=== PATIENT | female | born 1945 | race African-American/Black ===

== ENCOUNTER 2017-09-05 12:43 | Observation (INO) | payer MEDICARE ==
[2017-09-05 13:30] LABS: #Eosinphils 0.1 thou/uL (0.0-0.7); #Monocytes 0.5 thou/uL (0.11-0.59); #Neutrophils 5.8 thou/uL (1.40-6.50); %Basophils 0.1 % (0.0-1.0); %Eosinophils 1.6 % (0.0-10.0); %Monocytes 6.7 % (0.0-10.0); %Neutrophils 78.6 % (42.0-75.0); Hemoglobin 12.2 g/dL (12.0-16.0); Mean Corpuscular HGB CONC 31.9 g/dL (32.0-36.0); Mean Corpuscular Hemoglobin 29.2 pg (27.0-31.0); Mean Corpuscular Volume 91.5 fl (81.0-99.0); Platelet Count 116 thou/uL (130-400); RBC Distribution Width 12.4 % (11.5-14.5); Red Blood Cell (RBC) Count 4.17 mill/uL (4.20-5.40); White Blood Cell (WBC) Count 7.4 thou/uL (4.8-10.8)
[2017-09-05 13:48] LABS: ALT (SGPT) Less than 7 U/L (8-55); AST (SGOT) 12 U/L (5-34); Albumin 3.9 g/dL (3.4-4.8); Alkaline Phosphatase 52 U/L (40-150); Anion Gap 13 mmol/L (10-20); BUN (Urea Nitrogen) 13 mg/dL (9.8-20.1); Bilirubin, Total 0.4 mg/dL (0.2-1.2); CK (CPK) 95 U/L (29-168); Calc. Creatinine Clearance 0 mL/min (70-130); Calcium 9.7 mg/dL (7.8-10.44); Carbon Dioxide 26 mmol/L (23-31); Chloride 106 mmol/L (98-107); Estimated GFR-MDRD 35; Globulin 3.1 g/dL (2.4-3.5); Glucose 89 mg/dL (83-110); Lipase 48 U/L (8-78); Potassium 3.9 mmol/L (3.5-5.1); Sodium 141 mmol/L (136-145)
[2017-09-05 13:59] LABS: CKMB 0.5 ng/mL (0-6.6); Troponin I 0.017 ng/mL (< 0.028)
--- NOTE | 2017-09-05 15:21 | CT ---
CT BRAIN WITHOUT CONTRAST: HISTORY: Bradycardia and syncope. FINDINGS: There are changes of chronic small vessel ischemic disease and old infarction in the right basal gang philip and right occipital lobe. No evidence of acute infarct, hemorrhage, midline shift, or abnormal e xtraaxial fluid collections is seen. The ventricular size is appropriate, and the basilar cisterns a re patent. The bony calvarium is intact. The visualized paranasal sinuses and mastoid air cells are well aerated. IMPRESSION: No CT evidence of acute intracranial process. POS: ENRIQUEH
--- NOTE | 2017-09-05 16:01 | RAD ---
PORTABLE CHEST ONE VIEW: 09/05/17 at 3:03 p.m. HISTORY: Syncope. FINDINGS: The heart size is borderline. The aorta is tortuous. No lobar consolidation, pneumothoraces, tonio pu lmonary edema or pleural effusions are seen. There are degenerative changes in the spine. IMPRESSION: No radiographic evidence of acute cardiopulmonary process. POS: H
--- NOTE | 2017-09-05 16:50 | HP ---
PRIMARY CARE PHYSICIAN: Dr. Nataliia Diallo. REASON FOR ADMISSION: Syncope, sinus bradycardia. HISTORY OF PRESENT ILLNESS: A 72-year-old female who has a history of Parkinson's d isease as well as Alzheimer dementia, who was brought to emergency room by paramedics for syncopal ep isode. This morning, the patient was getting ready for her primary care physician followup visit and the patient was resting and waiting for going. At that time, the patient slumped over and at that t gabino, the patient was less responsive. She became diaphoretic and she had episode of vomiting. Ze edics were called and paramedics found pulse 30 on the scene. She was given atropine 1.5 mg. The pa tient was found with a second degree type 1 AV block as per paramedics. Subsequently, after atropine , her pulse improved to 60s. The patient's vitals were stable other than bradycardia by paramedics. When she came to emergency room, at that time her heart rate was in 72, but subsequently was dropping to 40s. At this point, we are admitting this patient for syncope evaluation and sinus bradycardia e valuation. The patient is not taking any medication that can cause low pulse. The patient has under lying Alzheimer dementia and Parkinson disease and that is why from her history is very limited. The patient's sister and other family member present at bedside, who provided most of the history. The patient never had this type of problem in past. She did not have any chest pain or palpitation. She did not have any dyspnea on exertion, orthopnea, PND or leg swelling. She did not have any fever, c hills, UTI symptoms, constipation, diarrhea, melena or hematochezia. She did not have any focal weak ness. REVIEW OF SYSTEMS: All review of systems tried to reviewed with the patient, but unable to review at this point because of Alzheimer's dementia and not reliable. ALLERGIES: No known drug allergy. CURRENT HOME MEDICATIONS: Zocor 80 mg p.o. at bedtime, carbidopa levodopa 25/100 two tablets 3 times daily, Zoloft 50 mg p.o. daily, Aricept 10 mg p.o. at bedtime, aspirin 81 mg p.o. daily, Combtiffanie rollins twice daily. PAST MEDICAL HISTORY: History of cerebrovascular accident with left-sided weakness, Parkinson's dise ase, Alzheimer dementia, dyslipidemia, hypertension, and glaucoma. PAST SURGICAL HISTORY: Cataract surgery. PAST PSYCHIATRIC HISTORY: Anxiety and depression. SOCIAL HISTORY: The patient lives at home with family. No history of tobacco, alcohol or illicit dr ug abuse. FAMILY HISTORY: No strong family history of premature coronary artery disease, stroke or cancer. EMERGENCY ROOM COURSE: Reviewed. PHYSICAL EXAMINATION: VITAL SIGNS: Currently, blood pressure 129/47, pulse 48, respiratory rate 15, temperature 97.6, satu ration 100% on room air, weight 90.7 kilograms. GENERAL: The patient is currently alert, awake, arousable, follows simple command. No acute distres s. HEAD: Normocephalic, atraumatic. EYES: Pupils round, reactive to light. Extraocular muscle intact. ENT: Oropharynx within normal limit. Moist mucous membranes. No oral lesion, no pharyngeal erythem a, no exudate. NECK: Supple, no JVD, no thyromegaly, no carotid bruit, no jugular venous distention. LUNGS: Clear to auscultation without any rhonchi or rales. CARDIAC: S1, S2 regular, bradycardia. No murmur, no gallop, no rub. ABDOMEN: Soft, bowel sounds present, nontender, nondistended. No organomegaly, no mass, no suprapub ic tenderness. BACK: Unremarkable, no CVA tenderness. EXTREMITIES: Upper extremity: Passive movements of all joints are normal. Lower extremities: No e maday. Good peripheral pulsation. SKIN: No skin rash. HEMATOLOGICAL: No lymphadenopathy. PSYCHIATRIC: Normal affect. NEUROLOGIC: She is moving all 4 limbs. Detailed neurological examination is not possible, but gross ly looking patient does not have any focal neurological deficit. Plantar bilateral flexor. Reflexes symmetrical. SIGNIFICANT LABS: 1. EKG showing sinus bradycardia. 2. CBC: WBC 7.4, hemoglobin 12.2, platelet 116. BMP: Sodium 141, potassium 3.9, chloride 106, car bon dioxide 26, anion gap 13, BUN 13, creatinine 1.46, glucose 89, calcium 9.7. 3. LFT: AST 12, ALT less than 7, alkaline phosphatase 52, albumin 3.9, CK 95, CK-MB 0.5, troponin I 0.017, lipase 48. ASSESSMENT AND PLAN: 1. Syncope/near syncope, most likely related with symptomatic bradycardia. As per paramedics, her p ulse rate was in 30s. She required atropine. Her heart rate is still running in 40s. At this point , we will consult Cardiology for their opinion. This patient may need pacemaker evaluation. We will do serial cardiac enzymes to rule out acute coronary syndrome. This patient may need a loop recorde r. We will obtain echocardiography to assess the other structural abnormality. We will check orthos tatic vitals. We will monitor on telemetry floor. 2. Parkinson's disease. We will continue carbidopa/levodopa 25/100 two tablets 3 times daily as per home dosage. 3. Alzheimer dementia. We will continue Aricept 10 mg p.o. at bedtime. 4. Dyslipidemia. Continue Zocor 80 mg p.o. at bedtime and check lipid profile tomorrow morning. 5. Symptomatic sinus bradycardia. We will check TSH as well and Cardiology will be consulted for pa eric evaluation. 6. Glaucoma. We will continue patient's ophthalmic drops Combigan as per home dosage twice daily. 7. Anxiety and depression. We will continue Zoloft 50 mg p.o. daily. 8. Mild thrombocytopenia. We will monitor CBC. 9. Chronic kidney disease stage 3. We will monitor renal function. 10. Deep venous thrombosis prophylaxis not needed because we are expecting discharge in 24 hours. 11. Gastrointestinal prophylaxis, Pepcid 20 mg p.o. b.i.d. 12. Code status: The patient is FULL CODE. Patient's sister is surrogate decision maker. Disposition plan based on clinical course and Cardiology recommendation. Plan of care discussed with the patient and family member at bedside in the emergency room.
[2017-09-05 17:14] LABS: Troponin I 0.017 ng/mL (< 0.028)
[2017-09-05] MEDS ORDERED: hydrALAZINE 20 MG/ML VIAL SLOW IVP PRN (18:00)
[2017-09-05] MEDS ORDERED: Loperamide HCl 2 MG CAP PO PRN (18:00)
[2017-09-05] MEDS ORDERED: Eucerin (Mineral Oil/Petrolatum,White) 30 gm Jar TOP PRN (18:00)
[2017-09-05] MEDS ORDERED: Milk Of Magnesia 30 ML UDCUP PO PRN (18:00)
[2017-09-05] MEDS ORDERED: Artificial Tears 18 DROP/0.9 ML EA EYE PRN (18:00)
[2017-09-05] MEDS ORDERED: Ondansetron HCl/PF 4 MG/2 ML Vial IVP PRN (18:00)
[2017-09-05] MEDS ORDERED: Ondansetron ODT 4 MG TAB PO PRN (18:00)
[2017-09-05] MEDS ORDERED: Sodium Chloride 0.65% Nasal 44 ML BOT EA NARE PRN (18:00)
[2017-09-05] MEDS ORDERED: Acetaminophen 325 MG TAB PO PRN (18:00)
[2017-09-05] MEDS ORDERED: Loratadine 10 MG TAB PO PRN (18:00)
[2017-09-05] MEDS ORDERED: Zolpidem Tartrate 5 MG TAB PO PRN (18:00)
[2017-09-05] MEDS ORDERED: HYDROcodone/Acetaminophen 5/325 mg Tablet PO PRN (18:00)
[2017-09-05] MEDS ORDERED: Senokot 8.6 MG TAB PO PRN (18:00)
[2017-09-05] MEDS ORDERED: Chloraseptic Spray 180 ml Bottle PO PRN (18:00)
[2017-09-05] MEDS ORDERED: Atropine Sulfate 1 mg/1 ml Vial IVP PRN (18:00)
[2017-09-05] MEDS ORDERED: Diabetic Tussin 200 MG/10 ML UDCUP PO PRN (18:00)
[2017-09-05] MEDS ORDERED: Nitroglycerin 0.4 MG TAB (25 Tab Bottle) SL PRN (18:00)
[2017-09-05] MEDS ORDERED: Mag-Al 1200 mg/1200 mg/30 ML UDCUP PO PRN (18:00)
[2017-09-05 18:11] VITALS: BMI 31.1
[2017-09-05 20:01] LABS: Troponin I 0.021 ng/mL (< 0.028)
[2017-09-05] MEDS: Famotidine 20 MG TAB PO SCH (20:42)
[2017-09-05] MEDS: Carbidopa/Levodopa 25-100 mg Tablet PO SCH (20:42)
[2017-09-05] MEDS: Donepezil HCl 10 MG TAB PO SCH (20:42)
[2017-09-05] MEDS: Simvastatin 40 MG TAB PO SCH (20:43)
--- NOTE | 2017-09-05 21:10 | CON ---
DATE OF CONSULT: HISTORY OF PRESENT ILLNESS: The patient is a 72-year-old woman who has a history of Parkinson's disease who presents for evaluation of near syncope. The patient has no previous cardiac history. She suffers from dementia. She lives with her family. She suddenly became nauseated, lightheaded and nearly lost consciousness. EMS was contacted. She was found to have a heart rate of approximately 30. She received atropine and was sent for further evaluation. The patient denies having any chest discomfort. Apparent her according to her family she has no previous history of syncope. PAST MEDICAL HISTORY: 1. Parkinson disease. 2. Dementia. 3. Hypertension. 4. Glaucoma. PAST SURGICAL HISTORY: Cataract surgery. SOCIAL HISTORY: She lives with her family. Nonsmoker. FAMILY HISTORY: Noncontributory: CURRENT MEDICATIONS: Aricept 10 daily, Zocor 80 daily, carbidopa/levodopa 2 tablets t.i.d., Zoloft 50 daily, aspirin 81. PHYSICAL EXAMINATION: GENERAL: This is an elderly woman in no acute distress. VITAL SIGNS: Blood pressure of 156/82, heart rate is approximately 45. GENERAL: Alert and oriented x1. NECK: Showed no jugular venous distention. LUNGS: Clear to auscultation. HEART: Regular rate and rhythm, normal S1, S2, no murmurs. ABDOMEN: Distended. EXTREMITIES: Showed trace edema. VASCULAR: Radial pulses are 2+. LABORATORY: Sodium 141, potassium 3.9, chloride 106, bicarb 26, BUN 13, creatinine 1.46. Troponin 0.017. White blood count 7.4, hemoglobin 12.2, hematocrit 38.1, platelets 116. EKG revealed sinus bradycardia with second degree with heart block, Mobitz type 1. IMPRESSION: 1. Bradycardia. 2. Syncope. 3. Parkinson's disease. 4. Hypertension. 5. Obesity. This patient presents with a near syncopal episode. She is in Mobitz type 1 second degree AV block. We will ask EP to evaluate whether she should have placement of electronic pacemaker. We will follow this patient with you through her hospitalization. DOLLY
[2017-09-06 05:34] LABS: Anion Gap 14 mmol/L (10-20); BUN (Urea Nitrogen) 13 mg/dL (9.8-20.1); Calc. Creatinine Clearance 53 mL/min (70-130); Calcium 9.3 mg/dL (7.8-10.44); Carbon Dioxide 24 mmol/L (23-31); Cardiac Risk 2.9 (Less than 4.5); Chloride 105 mmol/L (98-107); Cholesterol 147 mg/dl (< 200 Desired); Estimated GFR-MDRD 49; Glucose 73 mg/dL (83-110); HDL Cholesterol 51 mg/dL (>60 Neg Risk); LDL Cholesterol, Calculated 79 mg/dL; Potassium 3.3 mmol/L (3.5-5.1); Sodium 140 mmol/L (136-145); Triglycerides 86 mg/dL (Less than 150)
[2017-09-06 05:48] LABS: #Eosinphils 0.1 thou/uL (0.0-0.7); #Lymphocytes 1.4 thou/uL (1.20-3.40); #Monocytes 0.4 thou/uL (0.11-0.59); #Neutrophils 2.5 thou/uL (1.40-6.50); %Basophils 0.7 % (0.0-1.0); %Eosinophils 3.3 % (0.0-10.0); %Lymphocytes 31.8 % (21.0-51.0); %Monocytes 8.4 % (0.0-10.0); %Neutrophils 55.8 % (42.0-75.0); Hemoglobin 11.3 g/dL (12.0-16.0); Mean Corpuscular HGB CONC 32.9 g/dL (32.0-36.0); Mean Corpuscular Hemoglobin 30.2 pg (27.0-31.0); Mean Corpuscular Volume 91.8 fl (81.0-99.0); Platelet Count 121 thou/uL (130-400); RBC Distribution Width 12.3 % (11.5-14.5); Red Blood Cell (RBC) Count 3.74 mill/uL (4.20-5.40); White Blood Cell (WBC) Count 4.5 thou/uL (4.8-10.8)
[2017-09-06] MEDS ORDERED: Potassium Chloride 20 MEQ TAB PO SCH ×2 (07:00→10:30)
[2017-09-06] MEDS ORDERED: Midazolam HCl 2 mg/2 ml Vial ONE (07:13)
[2017-09-06] MEDS ORDERED: Fentanyl 100 MCG/2 ML VIAL ONE (07:13)
[2017-09-06] MEDS ORDERED: CEFAZOLIN/Water 2 GM/20 ML SYRINGE ONE (07:14)
[2017-09-06] MEDS ORDERED: Lidocaine 1% (PF) 30 ML VIAL ONE ×2 (07:14→08:49)
--- NOTE | 2017-09-06 10:06 | CON ---
DATE OF CONSULTATION: 09/06/2017 ELECTROPHYSIOLOGY CONSULTATION REFERRING PHYSICIAN: Dr. Kaiser as well as Dr. Man. I am seeing Ms. 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 Her problems are: 1. Symptomatic bradycardia with syncope. 2. EKG documentation of heart rate in the 30s. 3. Chronic fatigue. 4. History of Alzheimer's dementia and Parkinsonism. 5. History of hypercholesterolemia. ALLERGIES: None. MEDICATIONS: At home include aspirin, sertraline, carbidopa/levodopa, simvastatin, donepezil, brimon idine. SUBJECTIVE: Ms. Brenner is a poor historian. Most of the history is obtained from the chart as well as from the family. This lady has been having chronic fatigue and tiredness. She has a lot of time spent sleeping during the day. This was attributed to her dementia in the past, but while visiting her primary care physician she was noted to be diaphoretic. She even threw up and then her heart rat e was in the 30s on arrival of EMS. She did become very poorly responsive along with this. Eventual ly, she came to and went back to her usual self. Her heart rate still remained in the 40s to low 50s . Episodes of sinus bradycardia was seen, but also some Mobitz type 1 second degree AV block. Apart from that, there is no major new symptoms. She has the usual chronic memory problems at that t gabino, though she has no stroke-like symptoms or neurological deficits. There is no fever, chills or c ough, no UTI like symptoms. No diarrhea, no further abdominal discomfort. REVIEW OF SYSTEMS: The rest of the twelve point systems otherwise unremarkable. PAST MEDICAL HISTORY: As above. She denies prior history of heart disease or heart attacks. No his tory of LV dysfunction is noted. She does have a history of glaucoma and cataract surgery. SOCIAL HISTORY: Patient lives with her family. Denies smoking, ETOH, or drug use. FAMILY HISTORY: Noncontributory. OBJECTIVE: VITAL SIGNS: Blood pressure is 163/92, heart rate 50, respiration 16, temperature 98.4 degrees Fahre nheit. GENERAL: This is an oriented elderly woman in no apparent distress. NECK: Supple. Jugular veins not distended. CHEST: Coarse without crackles. CARDIAC: Heart sounds are regular to rate and rhythm. No murmur or gallop. ABDOMEN: Benign. Bowel sounds positive. EXTREMITIES: Lower extremities without edema, clubbing or cyanosis. Pulses are adequate. NEUROLOGIC: Patient nonfocal. MUSCULOSKELETAL: No joint deformity. SKIN: Without rash. DATABASE: The EKGs reviewed revealing a baseline sinus bradycardia, rate of 56 beats per minute. Al so, Mobitz type 1 AV block is seen. Subsequent EKGs also reveal heart rates in the 30s transiently w ith sinus bradycardia. LABORATORY DATA: White count is initially 7.4, hemoglobin 12.2, platelet count is 116. Sodium 141, potassium 3.9, BUN is 30, creatinine is 1.46. Chest x-ray also shows no acute processes. ASSESSMENT AND PLAN: Ms. Brenner is a pleasant 72-year-old woman with history of Parkinson's and Alz heimer's and progressive fatigue and tiredness. She is noted to have marked lower heart rates in the 30s associated with a syncopal spell in her primary care physician's office. The episode was relati vely unprovoked, although could have worsened by acute nausea and vomiting. Nevertheless, her heart rate remains in the lower 40s and 50s. It seems that this lady has a significant sinus milan disease associated with chronic fatigue and tir edness and sleepiness. In view of her recent syncope she could benefit from pacemaker prophylaxis, e augustina though she has Alzheimer's she has some residual quality of life. We discussed the wishes of ramsey ng with the family and risks and benefits were clearly detailed. They understand and willing to proce ed. Thank you again for allowing me to participate in the care of this patient.
[2017-09-06] MEDS ORDERED: Iopamidol 370 76% 50 ML VIAL FS ONE (10:15)
--- NOTE | 2017-09-06 10:15 | PDOC.PN ---
- Subjective Encounter Start Date: 09/06/17 Encounter Start Time: 13:00 -: old records requested/rev Patient seen and examined. No new complaints. No overnight events pacemaker placed - Objective Resuscitation Status: Resuscitation Status FULL:Full Resuscitation MAR Reviewed: Yes Vital Signs & Weight: Vital Signs (12 hours) Temp Pulse Resp BP BP Pulse Ox 09/06/17 08:00 98.4 F 50 L 16 163/92 H 96 09/06/17 07:30 98.4 F 50 L 16 09/06/17 03:31 98.7 F 51 L 16 139/73 Weight Weight 193 lb 6.4 oz I&O: 09/05/17 09/06/17 09/07/17 06:59 06:59 06:59 Intake Total 190 Balance 190 Result Diagrams: 09/06/17 05:01 09/06/17 05:01 EKG Reviewed by me: Yes Phys Exam - Physical Examination Constitutional: NAD HEENT: moist MMs, sclera anicteric Neck: no JVD, supple Respiratory: no wheezing, no rales, no rhonchi Cardiovascular: RRR, no significant murmur, no rub pacemaker site is clean Gastrointestinal: soft, non-tender, no distention, positive bowel sounds Musculoskeletal: no edema, pulses present Neurological: non-focal, normal sensation, moves all 4 limbs Psychiatric: normal affect, A&O x 3 Skin: no rash, normal turgor Dx/Plan (1) Hypokalemia Code(s): E87.6 - HYPOKALEMIA Status: Acute (2) Pancytopenia Code(s): D61.818 - OTHER PANCYTOPENIA Status: Acute (3) Symptomatic bradycardia Code(s): R00.1 - BRADYCARDIA, UNSPECIFIED Status: Acute Comment: mobitz type -1 AVB (4) Syncope Code(s): R55 - SYNCOPE AND COLLAPSE Status: Acute (5) Thrombocytopenia Code(s): D69.6 - THROMBOCYTOPENIA, UNSPECIFIED Status: Acute (6) Alzheimer's dementia Code(s): G30.9 - ALZHEIMER'S DISEASE, UNSPECIFIED; F02.80 - DEMENTIA IN OTH DISEASES CLASSD ELSWHR W/O BEHAVRL DISTURB Status: Chronic (7) Anxiety and depression Code(s): F41.9 - ANXIETY DISORDER, UNSPECIFIED; F32.9 - MAJOR DEPRESSIVE DISORDER, SINGLE EPISODE, UNSPECIFIED Status: Chronic (8) CKD (chronic kidney disease) stage 3, GFR 30-59 ml/min Code(s): N18.3 - CHRONIC KIDNEY DISEASE, STAGE 3 (MODERATE) Status: Chronic (9) Dyslipidemia Code(s): E78.5 - HYPERLIPIDEMIA, UNSPECIFIED Status: Chronic (10) H/O: CVA (cerebrovascular accident) Code(s): Z86.73 - PRSNL HX OF TIA (TIA), AND CEREB INFRC W/O RESID DEFICITS Status: Chronic (11) Parkinson disease Code(s): G20 - PARKINSON'S DISEASE Status: Chronic - Plan cont current plan of care * today EP study and possible pacemaker placement * will replace potassium chloride * will add folic acid and vitamin B12 * continue her home medication * if pacemaker placed, will observe overnight and consider discharge tomorrow * medication reviewed as below * symptomatic treatment. Review of Systems - Review of Systems Other: unable to review with pt as pt has advanced dementia - Medications/Allergies Allergies/Adverse Reactions: Allergies Allergy/AdvReac Type Severity Reaction Status Date / Time No Known Allergies Allergy Unverified 09/05/17 18:01 Medications: Current Medications Acetaminophen (Tylenol) 650 mg PO Q4H PRN PRN Reason: Headache/Fever or Pain Hydrocodone Bitart/Acetaminophen ([place] 5/325) 1 tab PO Q4H PRN PRN Reason: Moderate Pain (4-6) Al Hydroxide/Mg Hydroxide (Maalox) 30 ml PO Q6H PRN PRN Reason: Heartburn or Indigestion Artificial Tears (Tears Naturale) 0 drop EA EYE PRN PRN PRN Reason: Dry Eyes Aspirin (Aspirin Chewable) 81 mg PO DAILY [facility] Atropine Sulfate (Atropine) 0.5 mg IVP ONE PRN PRN Reason: bradycardia HR <35 Stop: 09/07/17 18:01 Carbidopa/Levodopa (Sinemet 25-100) 2 tab PO TID MELVIN Last Admin: 09/05/17 20:42 Dose: 2 tab Cyanocobalamin (Vitamin B-12) 1,000 mcg PO DAILY MELVIN Donepezil HCl (Aricept) 10 mg PO HS MELVIN Last Admin: 09/05/17 20:42 Dose: 10 mg Famotidine (Pepcid) 20 mg PO 2100 MELVIN Last Admin: 09/05/17 20:42 Dose: 20 mg Folic Acid (Folvite) 1 mg PO DAILY [facility] Guaifenesin (Robitussin Sf) 200 mg PO Q4H PRN PRN Reason: Cough Hydralazine HCl (Apresoline) 10 mg SLOW IVP Q4H PRN PRN Reason: Systolic BP > 180 Iron/Minerals/Multivitamins (Theragran M) 1 tab PO DAILY [facility] Loperamide HCl (Imodium) 2 mg PO PRN PRN PRN Reason: Diarrhea/Loose Stools Loratadine (Claritin) 10 mg PO DAILYPRN PRN PRN Reason: Sinus Symptoms Magnesium Hydroxide (Milk Of Magnesium) 30 ml PO DAILYPRN PRN PRN Reason: Constipation Mineral Oil/White Petrolatum (Eucerin Cream) 0 gm TOP BIDPRN PRN PRN Reason: Dry Skin Nitroglycerin (Nitrostat) 0.4 mg SL Q5MIN PRN PRN Reason: Chest Pain Ondansetron HCl (Zofran Odt) 4 mg PO Q6H PRN PRN Reason: Nausea/Vomiting Ondansetron HCl (Zofran) 4 mg IVP Q6H PRN PRN Reason: Nausea/Vomiting Phenol (Chloraseptic Alna 180 Ml Bot) 0 ml PO PRN PRN PRN Reason: Sore Throat Senna (Senokot) 2 tab PO HSPRN PRN PRN Reason: Constipation Sertraline HCl (Zoloft) 50 mg PO DAILY [facility] Simvastatin (Zocor) 80 mg PO HS [facility] Last Admin: 09/05/17 20:43 Dose: 80 mg Sodium Chloride (Stokes Nasal Alna 0.65%) 0 ml EA NARE QIDPRN PRN PRN Reason: Nasal Congestion Sodium Chloride (Flush - Normal Saline) 10 ml IVF Q12HR MELVIN Sodium Chloride (Flush - Normal Saline) 10 ml IVF PRN PRN PRN Reason: Saline Flush Zolpidem Tartrate (Ambien) 5 mg PO HSPRN PRN PRN Reason: Insomnia
[2017-09-06] MEDS ORDERED: HYDROcodone/Acetaminophen 5/325 mg Tablet PO PRN ×2 (10:36)
[2017-09-06] MEDS: Cyanocobalamin (Vitamin B-12) 1,000 MCG TAB PO SCH (13:21)
[2017-09-06] MEDS: Cephalexin 250 MG CAP PO SCH ×2 (13:21→17:46)
[2017-09-06] MEDS: Folic Acid 1 MG TAB PO SCH (13:21)
[2017-09-06] MEDS: Multivitamin W/ Minerals 1 TAB PO SCH (13:22)
[2017-09-06] MEDS: Carbidopa/Levodopa 25-100 mg Tablet PO SCH ×3 (13:22→20:53)
--- NOTE | 2017-09-06 13:35 | RAD ---
PORTABLE CHEST: Date: 09-06-17 Provided Clinical History: Pacemaker placement. FINDINGS: Comparison 09-05-17. Cardiac and mediastinal silhouette is unchanged in appearance. Left subclavian cardiac pacing device is now present with the tips overlying expected locations of RA and RV. No pleural fluid or pneumotho rax apparent. The lungs remain clear. IMPRESSION: Interval left subclavian cardiac pacemaking device placement without evidence for complication. POS: OFF
[2017-09-06 14:12] LABS: Bilirubin Negative (Negative); Blood, Urine Negative (Negative); Clarity CLEAR (Clear); Glucose, Urine (Dipstick) Negative (Negative); Leukocyte Large (Negative); Nitrite Negative (Negative); Protein, Urine (Dipstick) Negative (Neg-Trace); Specific Gravity, Urine 1.019 (1.002-1.036); Urobilinogen 0.2 mg/dL (0.2-1.0)
[2017-09-06 14:14] LABS: Bacteria/HPF None Seen HPF (None Seen); Hyaline Casts/LPF 0-3 HYALINE CAST LPF (0-3 Hyaline); Pathc Cast-AUWi Flag 0.14 (0-2.49); RBC/HPF 0-3 HPF (0-3); Squamous Epithelial 0-3 HPF (0-3); WBC/HPF 21-50 HPF (0-3)
[2017-09-06] MEDS: Simvastatin 40 MG TAB PO SCH (20:53)
[2017-09-06] MEDS: Famotidine 20 MG TAB PO SCH (20:54)
[2017-09-06] MEDS: Donepezil HCl 10 MG TAB PO SCH (20:54)
[2017-09-07] MEDS: Cephalexin 250 MG CAP PO SCH ×3 (01:19→12:37)
--- NOTE | 2017-09-07 08:02 | RAD ---
UPRIGHT PORTABLE CHEST 1 VIEW: HISTORY: A 72-year-old female with a history of pacemaker placement, followup syncope and 2nd degree type I he art block. Left ICD is in place. Atherosclerosis of the aorta. Heart size is within normal limits. The lungs are clear. IMPRESSION: No acute intrathoracic disease. Left implantable cardioverter defibrillator. Atherosclerosis of the aorta. Unchanged from prior study. POS: OFF
--- NOTE | 2017-09-07 08:51 | DIS ---
DATE OF ADMISSION: 09/05/2017 DATE OF DISCHARGE: 09/07/2017 DISCHARGE DIAGNOSES: 1. Symptomatic bradycardia. 2. Sinus bradycardia. 3. Status post pacemaker placement. 4. Alzheimer's type dementia. 5. Parkinson's disease. 6. Hypokalemia acute - resolved. 7. Pancytopenia, chronic. 8. Syncope and collapse. 9. Chronic thrombocytopenia. 10. Anxiety and depression. 11. Hyperlipidemia. 12. Chronic kidney disease stage 3. 13. Cerebrovascular disease status post cerebrovascular accident in the past. CONSULTATIONS: 1. Cardiology, Dr. Aashish Man 2. Electrophysiology, Dr. Nirmal Zamora PROCEDURES: Permanent pacemaker placement on 09/06/2017, AV sequential dual chamber. HISTORY AND PHYSICAL: Ms. Brenner is a 72-year-old female with history of Parkinson's and Alzheimer' s type dementia who presented to the emergency department for evaluation on 09/05/2017 after having a n episode of syncope. She was found to be bradycardic in the 30s to 40s. Given atropine and had a s econd degree type 1 AV block. Workup in the emergency department was otherwise negative. We were subsequently called for admission . HOSPITAL COURSE: The patient seen and examined by Dr. Saunders and placed in observation. Cardiology consulted who recommended EP consultation. EP was consulted and was seen by Dr. Zamora on the morning 09/06. He agreed that she could benefit from a pacemaker placement, patient was already n.p.o., and so afternoon of 09/06, a pacemaker was placed. Overnight, she did well, this morning she was refusing medications, but remains stable. Her followup chest x-ray showed no evidence of pneumothorax. She was discharged home with regular home medicatio ns and Keflex. The patient was seen and examined on day of discharge. Discharge plan and disposition were discussed with the patient, I am not sure how much she actually g ot. DISCHARGE MEDICATIONS: 1. New medication, cephalexin 500 mg p.o. q.6h., prescription 40 capsules sent. 2. Vitamin B12 1000 mcg daily. 3. Pepcid 20 mg p.o. daily. 4. Folic acid 1 mg daily. 5. Multivitamin daily 6. Namenda 10 mg p.o. at bedtime. 7. Sinemet 25/100 two tabs p.o. t.i.d. to continue. 8. Aspirin 81 mg daily. 9. Combigan 2% /0.5% 1 drop in each eye q.12h. 10. Zoloft 50 mg p.o. daily. 11. Simvastatin 80 mg p.o. at bedtime. FOLLOWUP APPOINTMENTS: 1. Dr. Imani William within a week. 2. Dr. Man per his clinic schedule. 3. Dr. Nirmal Zamora in 10-14 days. DISCHARGE CONDITION: Stable. DISPOSITION: She will be discharged home via private vehicle. DISCHARGE ACTIVITY: Per cardiopulmonary limits. DISCHARGE DIET: Heart healthy recommended.
[2017-09-07] MEDS: Folic Acid 1 MG TAB PO SCH (09:20)
[2017-09-07] MEDS: Carbidopa/Levodopa 25-100 mg Tablet PO SCH (09:20)
[2017-09-07] MEDS: Cyanocobalamin (Vitamin B-12) 1,000 MCG TAB PO SCH (09:20)
[2017-09-07] MEDS: Multivitamin W/ Minerals 1 TAB PO SCH (09:21)
[2017-09-07 11:19] VITALS: BP 166/93; TEMP 97.1
--- NOTE | 2017-09-07 13:36 | PRG ---
DATE OF SERVICE: 09/07/2017 ELECTROPHYSIOLOGY FOLLOWUP NOTE SUBJECTIVE: Ms. Brenner seems to be doing fair. She has no new symptoms after her pacemaker implant ation yesterday. OBJECTIVE DATA: VITAL SIGNS: Blood pressure is 114/78, heart rate 59, respiration 16, temperature 98.3 degrees Fahre nheit. GENERAL: This is a demented elderly female in no apparent distress. NECK: Supple. Jugular veins are not distended. CHEST: Coarse without crackles. CARDIOVASCULAR: Heart sounds are regular to rate and rhythm. Left precordial pacing insertion site is without reaction. ABDOMEN: Benign. Bowel sounds positive. EXTREMITIES: Lower extremities no edema, clubbing or cyanosis. DATABASE: Chest x-ray this morning shows no pneumothorax, adequate device placement. The telemetry strips reveals atrial paced rhythm. ASSESSMENT AND PLAN: Ms. Brenner is a pleasant 72-year-old wholly demented woman who had a syncopal spell with marked bradycardia, so she underwent a dual-chamber pacemaker placement yesterday, so far no complication detected. She was advised to go home on antibiotics for 1 week and wound check in ab out 2 weeks requested. From an EP standpoint, she is stable for discharge.
== END 2017-09-07 13:48 | disposition home or self-care (01) ==
LOC: ERS 12:43 → 2SE 15:09
PROVIDERS: ADMIT Internal Medicine; ATTEND Internal Medicine
PROC: 0JH606Z Insertion of Pacemaker, Dual Chamber into Chest Subcutaneous Tissue and Fascia, Open Approach (ICD-10-PCS; principal; 2017-09-05)
PROC: 02H63JZ Insertion of Pacemaker Lead into Right Atrium, Percutaneous Approach (ICD-10-PCS; 2017-09-05)
PROC: 02HK3JZ Insertion of Pacemaker Lead into Right Ventricle, Percutaneous Approach (ICD-10-PCS; 2017-09-05)
DX: R00.1 Bradycardia, unspecified (principal); I44.0 Atrioventricular block, first degree; I12.9 Hypertensive chronic kidney disease with stage 1 through stage 4 chronic kidney disease, or unspecified chronic kidney disease; N18.3 Chronic kidney disease, stage 3 (moderate); G30.9 Alzheimer's disease, unspecified; F02.80 Dementia in other diseases classified elsewhere, unspecified severity, without behavioral disturbance, psychotic disturbance, mood disturbance, and anxiety; G20 Parkinson's disease; E87.6 Hypokalemia; D61.818 Other pancytopenia; D69.6 Thrombocytopenia, unspecified; F41.8 Other specified anxiety disorders; E78.5 Hyperlipidemia, unspecified; Z79.82 Long term (current) use of aspirin; Z79.899 Other long term (current) drug therapy; Z98.890 Other specified postprocedural states; Z86.73 Personal history of transient ischemic attack (TIA), and cerebral infarction without residual deficits
CPT/HCPCS: 33208; 70450; 71045 ×3; 80048; 80053; 80061; 81001; 82550; 82553; 83690; 84443; 84484 ×2; 85025 ×2; 93005; 93306; 94760; 99285; C1785; C1898 ×2; G0378; 36415; A4216; J2001; J2250; J3010; J3490

== ENCOUNTER 2017-09-16 03:36 | Inpatient (IN) | payer MEDICARE ==
[2017-09-16 04:24] LABS: #Eosinphils 0.2 thou/uL (0.0-0.7); #Monocytes 0.4 thou/uL (0.11-0.59); #Neutrophils 3.9 thou/uL (1.40-6.50); %Basophils 0.9 % (0.0-1.0); %Eosinophils 3.5 % (0.0-10.0); %Lymphocytes 17.3 % (21.0-51.0); %Monocytes 7.7 % (0.0-10.0); %Neutrophils 70.6 % (42.0-75.0); Hemoglobin 12.3 g/dL (12.0-16.0); Mean Corpuscular HGB CONC 31.7 g/dL (32.0-36.0); Mean Corpuscular Hemoglobin 29.1 pg (27.0-31.0); Mean Corpuscular Volume 91.6 fl (81.0-99.0); Mean Platelet Volume 9.9 fL (7.4-10.4); Platelet Count 148 thou/uL (130-400); RBC Distribution Width 12.7 % (11.5-14.5); Red Blood Cell (RBC) Count 4.23 mill/uL (4.20-5.40); White Blood Cell (WBC) Count 5.5 thou/uL (4.8-10.8)
[2017-09-16 04:42] LABS: ALT (SGPT) Less than 7 U/L (8-55); AST (SGOT) 19 U/L (5-34); Alkaline Phosphatase 50 U/L (40-150); Anion Gap 14 mmol/L (10-20); BUN (Urea Nitrogen) 21 mg/dL (9.8-20.1); Bilirubin, Total 0.3 mg/dL (0.2-1.2); CK (CPK) 52 U/L (29-168); Calc. Creatinine Clearance 0 mL/min (70-130); Calcium 9.8 mg/dL (7.8-10.44); Carbon Dioxide 26 mmol/L (23-31); Chloride 104 mmol/L (98-107); Estimated GFR-MDRD 37; Globulin 3.2 g/dL (2.4-3.5); Glucose 92 mg/dL (83-110); Lipase 74 U/L (8-78); Potassium 3.9 mmol/L (3.5-5.1); Protein, Total 7.2 g/dL (6.0-8.3); Sodium 140 mmol/L (136-145)
[2017-09-16 04:47] LABS: CKMB 0.7 ng/mL (0-6.6); Troponin I 0.026 ng/mL (< 0.028)
[2017-09-16 04:54] LABS: Bilirubin Negative (Negative); Blood, Urine Negative (Negative); Clarity CLEAR (Clear); Glucose, Urine (Dipstick) Negative (Negative); Leukocyte Negative (Negative); Nitrite Negative (Negative); Protein, Urine (Dipstick) Negative (Neg-Trace); Urobilinogen 0.2 mg/dL (0.2-1.0)
[2017-09-16] MEDS ORDERED: Sodium Chloride 0.9% 1,000 ML IV SCH (06:00)
[2017-09-16] MEDS ORDERED: Ondansetron ODT 4 MG TAB PO PRN (07:03)
[2017-09-16] MEDS ORDERED: Ondansetron HCl/PF 4 MG/2 ML Vial IVP PRN ×2 (07:03→11:04)
[2017-09-16 07:45] LABS: Troponin I 0.043 ng/mL (< 0.028)
--- NOTE | 2017-09-16 08:10 | RAD ---
PORTABLE CHEST: Date: 09/16/17 HISTORY: Chest pain. FINDINGS: Lungs are clear. No evidence of infiltrate. Heart size within normal range. Dual lead pacemaker devic e again noted. No evidence of edema or vascular congestion. IMPRESSION: No acute findings. POS: [facility]
[2017-09-16] MEDS ORDERED: Guaifenesin DM 100-10/5 ML UDCUP PO PRN (11:04)
[2017-09-16] MEDS ORDERED: Acetaminophen 325 MG TAB PO PRN (11:04)
[2017-09-16] MEDS ORDERED: Metoprolol Tartrate 50 MG TAB PO SCH (11:22)
[2017-09-16 11:27] LABS: Troponin I 0.042 ng/mL (< 0.028)
--- NOTE | 2017-09-16 14:29 | CON ---
DATE OF CONSULTATION: 09/16/2017 PRIMARY SPORTS MEDICINE COORDINATOR: Dr. Estrada Man. REASON FOR CONSULTATION: Ventricular tachycardia. HISTORY OF PRESENT ILLNESS: Mrs. Brenner is a very pleasant 72-year-old -[place] female, who comes to the hospital for complaints of high blood pressure and tachycardia. She was brought in by EMS and was evaluated. She had a pacemaker placed about a week or two ago for symptomatic bradycardi a and she presented as a syncopal spell at that time. She did not have syncope this time. She comes in, pacemaker was interrogated and it showed a 1 minute and 38 seconds worth of ventricular high rat es is consistent with ventricular tachycardia, heart rate at 180, so Cardiology is being consulted fo r this. Mrs. Brenner denies any chest pain, tightness or pressure, no shortness of breath. Her bloo d pressure is still somewhat elevated. PAST MEDICAL HISTORY: 1. Parkinson's disease. 2. Dementia. 3. Hypertension. 4. Glaucoma. 5. Symptomatic bradycardia status post pacemaker placement. PAST SURGICAL HISTORY: 1. Cataract surgery. 2. Pacemaker placed recently. SOCIAL HISTORY: No alcohol, tobacco, or drugs. FAMILY HISTORY: Noncontributory. OUTPATIENT MEDICATIONS: Include: 1. Simvastatin 80 mg at bedtime. 2. Zoloft. 3. Multivitamin. 4. Folic acid. 5. Pepcid AC. 6. Aricept. 7. Vitamin B12. 8. Cephalexin. 9. Carbidopa/levodopa. 10. Brimonidine. 11. Aspirin 81 a day. ALLERGIES: No known drug allergies. REVIEW OF SYSTEMS: A 12-point review of systems was done and is all negative unless stated in the hi story of present illness. PHYSICAL EXAMINATION: VITAL SIGNS: Temperature 98.1, pulse 60, respiration rate 18, satting 96% on room air, and blood pre ssure 157/80. GENERAL: Awake, alert, oriented to person and place, difficulty with time, in no distress. HEENT: Normocephalic, atraumatic. NECK: Supple. LUNGS: Clear. CARDIOVASCULAR: S1 and S2. No S3 or S4, no murmurs. ABDOMEN: Soft, positive bowel sounds. EXTREMITIES: No edema. SKIN: Warm and dry. LABORATORY WORK: Reviewed. CBC is unremarkable. Chemistries are unremarkable. BUN 21, creatinine 1.64. Her baseline creatinine is actually little bit lower 1.21 discharged, but is between 1.3 and 1 .4. Troponin was 0.02 and 0.04, then 0.04. BNP was 61. GFR is 37. UA is unremarkable. EKG was reviewed. Telemetry was reviewed. A pacer interrogation was reviewed. She had one ventricular high event that lasted 1 minute and 46 s econds at 2:00 a.m. on 09/16/2017. This showed a max ventricular rate of 183 beats per minute. ASSESSMENT AND PLAN: 1. Ventricular tachycardia, sustained. 2. Recent pacemaker placement secondary to symptomatic bradycardia. 3. Parkinson disease. 4. Hypertension. PLAN: 1. In the setting of sustained ventricular tachycardia, we need to rule out ischemia as the cause. We spoke about possible left heart catheterization, risks and benefits. The risks include, but not l imited to stroke, [place], , bleeding and need for blood transfusion, limb loss, organ loss. reaction to contrast media. She agrees to proceed. We will plan on doing this on Monday. Dr. Man will perform procedure on Monday. 2. We will add beta catracho to control her blood pressure and hopefully deisy a little bit her VT. 3. Continue all other home medications. 4. Thank you for letting us participate in the care of your patient. We will follow.
[2017-09-16] MEDS: Carbidopa/Levodopa CR 50-200 mg Tablet PO SCH ×2 (17:25→21:48)
[2017-09-16 18:40] VITALS: BMI 31.1
[2017-09-16] MEDS ORDERED: Prevnar 13-Val Conj/PF 0.5 ML SYRINGE IM ONE (19:00)
--- NOTE | 2017-09-16 21:33 | HP ---
REASON FOR ADMISSION: Ventricular tachycardia. HISTORY OF PRESENT ILLNESS: Please note patient does not recall what happened and has underlying dementia. Further information was obtained by talking to patient's sister, Ms. Renaldo Gu, is also the power of contracts attorney for patient. Per . Renaldo, patient had gone to restroom around 2 in the morning. She usually takes help to ambulate, but had gone on her own. She was profusely sweating and was leaning onto the bathroom door. The sister finally recognized that she was not in bed and went to check on her and immediately called 911. They managed to bring her to the living room. She had not fallen per family. Patient was lethargic and a bit dazed. On arrival in the ER, the patient has had pacemaker interrogation done which revealed ventricular tachycardia with rates going up to 183 beats per minute around the same time around 2:00 a.m. early this morning and lasted for nearly a minute and 46 seconds. Currently, she has no complaints of chest pain, palpitation, PND or orthopnea. No complaints of cough or expectoration. Has not had any new medications started. PAST MEDICAL AND SURGICAL HISTORY: History of dementia, history of Parkinson's disease, dyslipidemia, hypertension, cataract surgery, recent pacemaker placement for bradycardia. CURRENT MEDICATIONS: The patient was discharged on 09/05/2017 on aspirin 81 mg p.o. daily, Combigan eyedrops, carbidopa/levodopa extended release 25/100 mg 2 tablets three times daily, vitamin B12 of 1000 mcg p.o. daily, donepezil 10 mg p.o. at bedtime, Pepcid 20 mg daily, folic acid 1 mg daily, multivitamin 1 tab once daily, sertraline 50 mg daily, simvastatin 80 mg p.o. at bedtime. ALLERGIES: No known drug allergies. PERSONAL HISTORY: Does not abuse alcohol or drugs. No history of smoking. She normally ambulates with minimal assistance. She lives with her sister, has home health. FAMILY HISTORY: Mother at the age of 76 years. She has had history of hypertension. Father at the age of 80 years. He has had history of coronary artery disease. REVIEW OF SYSTEMS: The following complete review of systems was negative, unless otherwise mentioned in the HPI or below: Constitutional: Weight loss or gain, ability to conduct usual activities. Skin: Rash, itching. Eyes: Double vision, pain. ENT/Mouth: Nose bleeding, neck stiffness, pain, tenderness. Cardiovascular: Palpitations, dyspnea on exertion, orthopnea. Respiratory: Shortness of breath, wheezing, cough, hemoptysis, fever or night sweats. Gastrointestinal: Poor appetite, abdominal pain, heartburn, nausea, vomiting, constipation, or diarrhea. Genitourinary: Urgency, frequency, dysuria, nocturia. Musculoskeletal: Pain, swelling. Neurologic/Psychiatric: Anxiety, depression. Allergy/Immunologic: Skin rash, bleeding tendency. PHYSICAL EXAMINATION: GENERAL: The patient is a 72-year-old female who is currently not in any acute distress. VITAL SIGNS: Blood pressure 158/96, pulse 64 per minute, respiratory rate 16 per minute, temperature 99.3 degrees on arrival, saturating 98% on room air. NECK: Supple, no elevated JVD. HEENT: Eyes, extraocular muscles intact. Pupils are reacting to light. Oral cavity, mucous membranes are moist. No exudates or congestion. CARDIOVASCULAR: S1, S2 heard. Regular rhythm. RESPIRATORY: Air entry 1+ bilaterally. No rales or rhonchi. ABDOMEN: Soft, bowel sounds heard. No tenderness, rigidity or guarding. EXTREMITIES: No peripheral edema or calf tenderness. VASCULAR SYSTEM: Peripheral pulses 1+ bilateral, no ischemic ulcerations or gangrene. CENTRAL NERVOUS SYSTEM: No gross focal deficits seen. Patient is lethargic, but responds well to verbal questions. She moves all 4 extremities. No obvious hallucinations or delusions. LABORATORY AND X-RAY FINDINGS: Chest x-ray done shows no acute findings. EKG done shows paced rhythm, mostly atrial paced at 62 beats per minute. White count of 5, H&H 12 and 38, platelet count 148 with 70% neutrophils, MCV is 91. Electrolytes are stable. BUN 21, creatinine 1.6. Liver enzymes are within normal limits. Troponin I is indeterminate peaking up to 0.04, CK-MB 0.7. BNP is 61. Lipase is 74, albumin is 4.0. CLINICAL IMPRESSION AND PLAN: Patient will be admitted to telemetry for an episode of ventricular tachycardia lasting for a minute and 46 seconds around 2: 00 a.m. She has had recent placement of pacemaker for bradycardia. We will consult Dr. Mart who is [employer] attendant for Cardiology. In fact, the patient had a recent followup on with Dr. Zamora and was told her pacemaker is working well. Patient does not have an AICD. Please note patient had a dual chamber pacemaker placed, but no AICD on 09/06/2017. Her echo on the revealed an ejection fraction of 45-50%. In view of her ventricular tachycardia, we will place her on Lopressor 50 mg twice daily and closely monitor her on telemetry. We will continue her on aspirin, Lipitor, Combigan eyedrops, Sinemet, vitamin B12, Aricept, folic acid, sertraline, and timolol eyedrops as before. Patient' s creatinine is around 1.64. This is slightly higher than her baseline, likely at 1.46 from 09/05/2017 and will be closely monitored. Code status was discussed with the patient and her sister and she would be a FULL CODE now. MTDD
[2017-09-16] MEDS: Docusate 100 MG CAP PO SCH (21:48)
[2017-09-16] MEDS: Famotidine 20 MG TAB PO SCH (21:48)
[2017-09-16] MEDS: Atorvastatin Calcium 40 MG TAB PO SCH (21:48)
[2017-09-16] MEDS: Metoprolol Tartrate 50 MG TAB PO SCH (21:48)
[2017-09-16] MEDS: Donepezil HCl 10 MG TAB PO SCH (21:48)
[2017-09-16] MEDS: Timolol 0.5% Ophth Soln 5 ml Bottle EA EYE SCH (21:51)
[2017-09-16] MEDS: Brimonidine Tartrate 0.2% Ophth Soln 5 ml Bottle EA EYE SCH (21:53)
[2017-09-17 05:27] LABS: #Basophils 0.1 thou/uL (0.0-0.2); #Eosinphils 0.2 thou/uL (0.0-0.7); #Lymphocytes 1.3 thou/uL (1.20-3.40); #Monocytes 0.5 thou/uL (0.11-0.59); #Neutrophils 3.1 thou/uL (1.40-6.50); %Basophils 1.5 % (0.0-1.0); %Eosinophils 3.9 % (0.0-10.0); %Lymphocytes 25.6 % (21.0-51.0); %Monocytes 9.2 % (0.0-10.0); %Neutrophils 59.8 % (42.0-75.0); Hemoglobin 12.1 g/dL (12.0-16.0); Mean Corpuscular HGB CONC 32.5 g/dL (32.0-36.0); Mean Corpuscular Hemoglobin 29.8 pg (27.0-31.0); Mean Corpuscular Volume 91.5 fl (81.0-99.0); Mean Platelet Volume 10.1 fL (7.4-10.4); Platelet Count 145 thou/uL (130-400); RBC Distribution Width 12.7 % (11.5-14.5); Red Blood Cell (RBC) Count 4.06 mill/uL (4.20-5.40); White Blood Cell (WBC) Count 5.2 thou/uL (4.8-10.8)
[2017-09-17 05:40] LABS: Anion Gap 11 mmol/L (10-20); BUN (Urea Nitrogen) 18 mg/dL (9.8-20.1); Calc. Creatinine Clearance 52 mL/min (70-130); Calcium 9.8 mg/dL (7.8-10.44); Carbon Dioxide 25 mmol/L (23-31); Chloride 104 mmol/L (98-107); Estimated GFR-MDRD 48; Glucose 70 mg/dL (83-110); Potassium 3.8 mmol/L (3.5-5.1); Sodium 136 mmol/L (136-145)
[2017-09-17] MEDS: Brimonidine Tartrate 0.2% Ophth Soln 5 ml Bottle EA EYE SCH ×2 (08:05→21:47)
[2017-09-17] MEDS: Timolol 0.5% Ophth Soln 5 ml Bottle EA EYE SCH ×2 (08:05→21:47)
[2017-09-17] MEDS: Docusate 100 MG CAP PO SCH ×2 (08:06→21:46)
[2017-09-17] MEDS: Carbidopa/Levodopa CR 50-200 mg Tablet PO SCH ×3 (08:06→21:46)
[2017-09-17] MEDS: Metoprolol Tartrate 50 MG TAB PO SCH ×2 (08:06→21:48)
[2017-09-17] MEDS: Multivitamin W/ Minerals 1 TAB PO SCH (08:06)
[2017-09-17] MEDS: Folic Acid 1 MG TAB PO SCH (08:06)
[2017-09-17] MEDS: Cyanocobalamin (Vitamin B-12) 1,000 MCG TAB PO SCH (08:07)
[2017-09-17] MEDS ORDERED: Enoxaparin Sodium 40 MG/0.4 ML SYRINGE SC SCH (09:00)
--- NOTE | 2017-09-17 11:36 | PDOC.PN ---
- Subjective Encounter Start Date: 09/17/17 Encounter Start Time: 07:20 Pt seen for followup re: ventricular tachycardia. Sleepy but arousable, denies chest pain, shortness of breath, fevers or chills. - Objective Resuscitation Status: Resuscitation Status FULL:Full Resuscitation MAR Reviewed: Yes Vital Signs & Weight: Vital Signs (12 hours) Temp Pulse Resp BP Pulse Ox 09/17/17 08:11 98.1 F 63 14 150/74 H 96 09/17/17 08:07 98.1 F 63 14 96 09/17/17 08:05 64 09/17/17 05:21 97.6 F 64 16 149/71 H 98 09/17/17 00:44 98.2 F 63 16 141/75 H 99 I&O: 09/16/17 09/17/17 09/18/17 06:59 06:59 06:59 Intake Total 300 Balance 300 Result Diagrams: 09/17/17 04:47 09/17/17 04:47 Additional Labs: Accuchecks 09/17/17 09/17/17 10:57 08:13 POC Glucose 75 62 L EKG Reviewed by me: Yes (Tele: electronic A-paced rhythm) Phys Exam - Physical Examination Obese HEENT: moist MMs, sclera anicteric, oral pharynx no lesions, 2+ tonsils Neck: no nodes, no JVD, supple, full ROM Respiratory: no wheezing, no rales, no rhonchi, clear to auscultation bilateral Cardiovascular: no rub S1, S2, regular Gastrointestinal: soft, non-tender, no distention, positive bowel sounds Neurological: moves all 4 limbs Psychiatric: normal affect Dx/Plan (1) Ventricular tachycardia Code(s): I47.2 - VENTRICULAR TACHYCARDIA Status: Acute Comment: No recurrence, continue to monitor on telemetry. Continue metoprolol. (2) Alzheimer's dementia Code(s): G30.9 - ALZHEIMER'S DISEASE, UNSPECIFIED; F02.80 - DEMENTIA IN OTH DISEASES CLASSD ELSWHR W/O BEHAVRL DISTURB Status: Chronic Comment: Stable (3) CKD (chronic kidney disease) stage 3, GFR 30-59 ml/min Code(s): N18.3 - CHRONIC KIDNEY DISEASE, STAGE 3 (MODERATE) Status: Chronic Comment: Stable (4) Dyslipidemia Code(s): E78.5 - HYPERLIPIDEMIA, UNSPECIFIED Status: Chronic Comment: Stable (5) H/O: CVA (cerebrovascular accident) Code(s): Z86.73 - PRSNL HX OF TIA (TIA), AND CEREB INFRC W/O RESID DEFICITS Status: Chronic Comment: Stable (6) Parkinson disease Code(s): G20 - PARKINSON'S DISEASE Status: Chronic Comment: Stable - Plan * . For cath tomorrow. Pt has PPM, no AICD. Review of Systems - Review of Systems Constitutional: negative: fever, chills, sweats, weakness, malaise Respiratory: negative: Cough, Shortness of Breath, SOB with Excertion, Pleuritic Pain, Wheezing Cardiovascular: negative: chest pain, palpitations, orthopnea, paroxysmal nocturnal dyspnea, edema, light headedness Gastrointestinal: negative: Nausea, Vomiting, Abdominal Pain, Diarrhea, Constipation, Melena, Hematochezia Genitourinary: negative: Dysuria, Frequency, Incontinence, Hematuria, Retention - Medications/Allergies Allergies/Adverse Reactions: Allergies Allergy/AdvReac Type Severity Reaction Status Date / Time No Known Allergies Allergy Unverified 09/05/17 18:01 Medications: Current Medications Acetaminophen (Tylenol) 650 mg PO Q4H PRN PRN Reason: Headache/Fever or Pain Aspirin (Aspirin Chewable) 81 mg PO DAILY [facility] Last Admin: 09/17/17 08:06 Dose: 81 mg Atorvastatin Calcium (Lipitor) 40 mg PO HS [facility] Last Admin: 09/16/17 21:48 Dose: 40 mg Brimonidine Tartrate (Alphagan 0.2% Ophth Soln) 1 drop EA EYE BID [facility] Last Admin: 09/17/17 08:05 Dose: 1 drop Carbidopa/Levodopa (Sinemet Cr 50/200) 1 tab PO TID [facility] Last Admin: 09/17/17 08:06 Dose: 1 tab Cyanocobalamin (Vitamin B-12) 1,000 mcg PO DAILY [facility] Last Admin: 09/17/17 08:07 Dose: 1,000 mcg Docusate Sodium (Colace) 100 mg PO BID [facility] Last Admin: 09/17/17 08:06 Dose: 100 mg Donepezil HCl (Aricept) 10 mg PO HS [facility] Last Admin: 09/16/17 21:48 Dose: 10 mg Enoxaparin Sodium (Lovenox) 40 mg SC 0900 [facility] Last Admin: 09/17/17 08:05 Dose: 40 mg Famotidine (Pepcid) 20 mg PO 2100 [facility] Last Admin: 09/16/17 21:48 Dose: 20 mg Folic Acid (Folvite) 1 mg PO DAILY [facility] Last Admin: 09/17/17 08:06 Dose: 1 mg Guaifenesin/Dextromethorphan (Robitussin Dm) 15 ml PO Q4H PRN PRN Reason: Cough Iron/Minerals/Multivitamins (Theragran M) 1 tab PO DAILY [facility] Last Admin: 09/17/17 08:06 Dose: 1 tab Metoprolol Tartrate (Lopressor) 50 mg PO BID [facility] Last Admin: 09/17/17 08:06 Dose: 50 mg Ondansetron HCl (Zofran) 4 mg IVP Q6H PRN PRN Reason: Nausea/Vomiting Sertraline HCl (Zoloft) 50 mg PO DAILY [facility] Last Admin: 09/17/17 08:06 Dose: 50 mg Timolol Maleate (Timoptic 0.5% Oph Soln) 1 drop EA EYE BID [facility] Last Admin: 09/17/17 08:05 Dose: 1 drop
--- NOTE | 2017-09-17 13:25 | PDOC.CTH ---
Cardiology Progress Note - Subjective She is more confused today. No chest pain. no recurrence of CT. - Objective Vital Signs Temp Pulse Resp BP Pulse Ox 09/17/17 11:46 98.3 F 66 16 131/75 94 L 09/17/17 08:11 98.1 F 63 14 150/74 H 96 09/17/17 08:07 98.1 F 63 14 96 09/17/17 08:05 64 09/17/17 05:21 97.6 F 64 16 149/71 H 98 09/16/17 09/17/17 09/18/17 06:59 06:59 06:59 Intake Total 300 Balance 300 - Physical Examination General/Neuro: NAD Neck: no JVD present Lungs: CTA, unlabored respirations Heart: RRR Abdomen: NT/ND Extremities: + edema B (trace) - Telemetry Telemetry Rhythm: NSR - Labs Result Diagrams: 09/17/17 04:47 09/17/17 04:47 Troponin/CKMB CK-MB (CK-2) 0.7 ng/mL (0-6.6) 09/16/17 04:14 Troponin I 0.042 ng/mL (< 0.028) H 09/16/17 10:07 - Assessment/Plan 1. Sustained VT 2. Presence of a PPM 3. HTN 4. Alzheimers dementia, waxes and wanes. PLAN: - I spoke with her sister about possibly doing a LHC. She stated she wants her to have a heart catheterization. We spoke about possible complications includign stroke, [place], , bleeding and need for blood transfusions, limb loss , organ loss, renal failure from contrast. She understand and verbalizes undrstanding of this and she agrees to proceed. - Dr. Man to do LHC tomorrow.
[2017-09-17] MEDS ORDERED: Communication Order-Pharmacy FS SCH (13:45)
[2017-09-17] MEDS: Donepezil HCl 10 MG TAB PO SCH (21:46)
[2017-09-17] MEDS: Famotidine 20 MG TAB PO SCH (21:46)
[2017-09-17] MEDS: Atorvastatin Calcium 40 MG TAB PO SCH (21:46)
[2017-09-18] MEDS: Sodium Chloride 0.9% 1,000 ML IV SCH ×2 (02:41→13:45)
[2017-09-18] MEDS: Timolol 0.5% Ophth Soln 5 ml Bottle EA EYE SCH ×2 (08:46→20:58)
[2017-09-18] MEDS: Multivitamin W/ Minerals 1 TAB PO SCH (08:48)
[2017-09-18] MEDS: Cyanocobalamin (Vitamin B-12) 1,000 MCG TAB PO SCH (08:48)
[2017-09-18] MEDS: Docusate 100 MG CAP PO SCH ×2 (08:48→20:54)
[2017-09-18] MEDS: Brimonidine Tartrate 0.2% Ophth Soln 5 ml Bottle EA EYE SCH ×2 (08:48→20:58)
[2017-09-18] MEDS: Metoprolol Tartrate 50 MG TAB PO SCH ×2 (08:48→20:53)
[2017-09-18] MEDS: Carbidopa/Levodopa CR 50-200 mg Tablet PO SCH ×3 (08:49→20:53)
[2017-09-18] MEDS: Folic Acid 1 MG TAB PO SCH (08:49)
--- NOTE | 2017-09-18 12:10 | PDOC.PN ---
- Subjective Encounter Start Date: 09/18/17 Encounter Start Time: 07:40 Pt seen for followup re: ventricular tachycardia. Sleepy but arousable, denies chest pain, shortness of breath, fevers or chills. - Objective Resuscitation Status: Resuscitation Status FULL:Full Resuscitation Vital Signs & Weight: Vital Signs (12 hours) Temp Pulse Resp BP BP BP Pulse Ox 09/18/17 11:44 97.7 F 60 12 129/86 100 09/18/17 08:46 63 139/80 09/18/17 08:00 98.3 F 63 12 139/80 98 09/18/17 03:31 97.7 F 60 16 137/81 98 09/18/17 01:10 98.2 F 61 16 147/74 H 100 I&O: 09/17/17 09/18/17 09/19/17 06:59 06:59 06:59 Intake Total 300 Balance 300 Result Diagrams: 09/17/17 04:47 09/17/17 04:47 EKG Reviewed by me: Yes (Tele: NSR) Phys Exam - Physical Examination Obese HEENT: moist MMs Neck: supple Respiratory: clear to auscultation bilateral Cardiovascular: RRR Gastrointestinal: soft Neurological: moves all 4 limbs Psychiatric: normal affect Dx/Plan (1) Ventricular tachycardia Code(s): I47.2 - VENTRICULAR TACHYCARDIA Status: Acute Comment: Continue metoprolol. Continue to monitor on telemetry. Pt to have repeat interrogation of pacemaker. (2) Alzheimer's dementia Code(s): G30.9 - ALZHEIMER'S DISEASE, UNSPECIFIED; F02.80 - DEMENTIA IN OTH DISEASES CLASSD ELSWHR W/O BEHAVRL DISTURB Status: Chronic Comment: Stable, continue home medications (3) CKD (chronic kidney disease) stage 3, GFR 30-59 ml/min Code(s): N18.3 - CHRONIC KIDNEY DISEASE, STAGE 3 (MODERATE) Status: Chronic Comment: Stable (4) Dyslipidemia Code(s): E78.5 - HYPERLIPIDEMIA, UNSPECIFIED Status: Chronic Comment: Stable (5) H/O: CVA (cerebrovascular accident) Code(s): Z86.73 - PRSNL HX OF TIA (TIA), AND CEREB INFRC W/O RESID DEFICITS Status: Chronic Comment: Stable (6) Parkinson disease Code(s): G20 - PARKINSON'S DISEASE Status: Chronic Comment: Stable - Plan * . Review of Systems - Review of Systems Respiratory: negative: Cough, Shortness of Breath, SOB with Excertion, Pleuritic Pain, Wheezing Cardiovascular: negative: chest pain, palpitations, orthopnea, paroxysmal nocturnal dyspnea, edema, light headedness - Medications/Allergies Allergies/Adverse Reactions: Allergies Allergy/AdvReac Type Severity Reaction Status Date / Time No Known Allergies Allergy Unverified 09/05/17 18:01 Medications: Current Medications Acetaminophen (Tylenol) 650 mg PO Q4H PRN PRN Reason: Headache/Fever or Pain Aspirin (Aspirin Chewable) 81 mg PO DAILY [facility] Last Admin: 09/18/17 08:48 Dose: 81 mg Atorvastatin Calcium (Lipitor) 40 mg PO HS [facility] Last Admin: 09/17/17 21:46 Dose: 40 mg Brimonidine Tartrate (Alphagan 0.2% Ophth Soln) 1 drop EA EYE BID [facility] Last Admin: 09/18/17 08:48 Dose: 1 drop Carbidopa/Levodopa (Sinemet Cr 50/200) 1 tab PO TID [facility] Last Admin: 09/18/17 08:49 Dose: 1 tab Cyanocobalamin (Vitamin B-12) 1,000 mcg PO DAILY [facility] Last Admin: 09/18/17 08:48 Dose: 1,000 mcg Docusate Sodium (Colace) 100 mg PO BID [facility] Last Admin: 09/18/17 08:48 Dose: 100 mg Donepezil HCl (Aricept) 10 mg PO HS [facility] Last Admin: 09/17/17 21:46 Dose: 10 mg Famotidine (Pepcid) 20 mg PO 2100 [facility] Last Admin: 09/17/17 21:46 Dose: 20 mg Folic Acid (Folvite) 1 mg PO DAILY [facility] Last Admin: 09/18/17 08:49 Dose: 1 mg Guaifenesin/Dextromethorphan (Robitussin Dm) 15 ml PO Q4H PRN PRN Reason: Cough Sodium Chloride (Normal Saline 0.9%) 1,000 mls @ 75 mls/hr IV .[id number] [facility] Last Admin: 09/18/17 02:41 Dose: 1,000 mls Iron/Minerals/Multivitamins (Theragran M) 1 tab PO DAILY [facility] Last Admin: 09/18/17 08:48 Dose: 1 tab Metoprolol Tartrate (Lopressor) 50 mg PO BID [facility] Last Admin: 09/18/17 08:48 Dose: 50 mg Miscellaneous Information (Communication Order-Pharmacy) 0 each FS ASDIR [facility] Ondansetron HCl (Zofran) 4 mg IVP Q6H PRN PRN Reason: Nausea/Vomiting Sertraline HCl (Zoloft) 50 mg PO DAILY [facility] Last Admin: 09/18/17 08:49 Dose: 50 mg Sodium Chloride (Flush - Normal Saline) 10 ml IVF Q12HR [facility] Last Admin: 09/17/17 21:47 Dose: 10 ml Sodium Chloride (Flush - Normal Saline) 10 ml IVF PRN PRN PRN Reason: Saline Flush Timolol Maleate (Timoptic 0.5% [facility]) 1 drop EA EYE BID [facility] Last Admin: 09/18/17 08:46 Dose: 1 drop
--- NOTE | 2017-09-18 14:01 | CON ---
DATE OF CONSULTATION: 09/18/2017 ELECTROPHYSIOLOGY CONSULTATION REPORT REFERRING PHYSICIAN: Estrada Man M.D. SUBJECTIVE: Ms. Brenner has history of dementia and she is a poor historian. History was obtained f rom the chart. This lady was noted to get dizzy and diaphoretic about 2:00 in the morning. She deve loped profuse sweating and was leaning onto the bathroom door. They called 911. Eventually, she was transferred to the hospital. The pacemaker was interrogated in the hospital, she was found to have rapid heartbeat, possible ventricular tachycardia was diagnosed. She was admitted for further observ ation. Ever since, her heart rates are stable. Currently, there are no signs of angina, CHF. No dizziness, loss of consciousness, no stroke-like sy mptoms, no neurological deficits either. REVIEW OF SYSTEMS: The rest of 12-point system also unremarkable. Again, she has a chronic dense de mentia. PAST MEDICAL HISTORY: As above. She had history of syncopal spell and marked bradycardia for which reason, she underwent a dual-chamber pacer implantation on 09/06/2017. Subsequently, she was dischar [facility] without issues. A 2D echo from 09/07/2017 was revealing LVEF 45%-50%, mild MR and TR. She also has history of parkinsonism, she is on carbidopa/levodopa. She has chronic fatigue prior to this, sh e has history of hypercholesterolemia. ALLERGIES: None. MEDICATIONS: At home include aspirin, sertraline, carbidopa/levodopa, simvastatin, and Brimonidine. SOCIAL HISTORY: Patient lives with family. Denies smoking history or drug use. FAMILY HISTORY: Noncontributory. OBJECTIVE: VITAL SIGNS: Blood pressure is 129/86, heart rate 60, respirations 12, temperature is 97.7 degrees F ahrenheit. GENERAL: She is alert and oriented woman in no apparent distress. NECK: Supple. Jugular veins not distended. CHEST: Coarse without crackles. CARDIOVASCULAR: Heart sounds are regular to rate and rhythm. No murmur or gallop. ABDOMEN: Benign. Bowel sounds positive. EXTREMITIES: Lower extremities without edema, clubbing or cyanosis. Pulses are adequate. NEUROLOGIC: Patient nonfocal. MUSCULOSKELETAL: Without joint swelling or deformities. SKIN: Without rash. Left precordial pacing insertion site is without reaction. DATABASE: The EKGs reviewed revealing atrial paced rhythm and a first degree AV block, narrow QRS co nduction. Telemetry strips reveals sinus rhythm, occasional PACs, rare PVCs are seen. No ventricula r arrhythmias are noted. On the other hand, the high pacing remote interrogation reveals a [employer]onic Adapta dual chamber pacemaker with battery longevity in the beginning of life about 10 years. Lead parameters are adequate, impedance 500 ohms and 752 ohms respectively. Sensing 2.8 and over 60 bertrand volts. Current programming is DDR 61 30 beats per minute. A single episode corresponding to the diz zy spell less than 1 minute and 46 seconds are noted concerns ventricular tachycardia. LABORATORY DATA: White count 5.2, hemoglobin 12.1, platelet count is 145. Sodium 136, potassium 3.8 , BUN 18, creatinine 1.3. Initial 1.64 to around her baseline. Troponin I 0.042, less than 0.0428 a nd 0.043. Chest x-ray from admission shows no acute findings. ASSESSMENT AND PLAN: Ms. Brenner is a pleasant 72-year-old woman with prior history of syncope, yohannes ed bradycardia which prompted us to implant a dual chamber pacemaker last visit. She healed up well from the pacing implant, but developed a recurrent near syncopal spell and that event correlated with rapid ventricular rates at 2:00 on the day of admission yesterday. The event electrograms were revi ewed revealing only far-field electrograms collected, but the counters seems to indicate ventricular rate of 183 beats per minute, atrial rate 113 beats per minute. This surely would indicate a ventric ular arrhythmia providing adequate atrial sensing occurred. For now, we will re-interrogate the device. She might benefit from antiarrhythmic drug suppression. Due to advanced dementia, we would not recommend ICD implantation at this point. We will follow with you. Further cardiac workup as per Dr. Man.
[2017-09-18] MEDS: Amiodarone 200 MG TAB PO SCH ×2 (14:57→20:53)
[2017-09-18] MEDS: Famotidine 20 MG TAB PO SCH (20:53)
[2017-09-18] MEDS: Donepezil HCl 10 MG TAB PO SCH (20:53)
[2017-09-18] MEDS: Atorvastatin Calcium 40 MG TAB PO SCH (20:53)
[2017-09-19] MEDS: Sodium Chloride 0.9% 1,000 ML IV SCH (04:08)
[2017-09-19] MEDS: Metoprolol Tartrate 50 MG TAB PO SCH ×2 (08:09→21:10)
[2017-09-19] MEDS: Docusate 100 MG CAP PO SCH ×2 (08:09→21:10)
[2017-09-19] MEDS: Amiodarone 200 MG TAB PO SCH ×3 (08:09→21:11)
[2017-09-19] MEDS: Multivitamin W/ Minerals 1 TAB PO SCH (08:09)
[2017-09-19] MEDS: Carbidopa/Levodopa CR 50-200 mg Tablet PO SCH ×3 (08:10→21:10)
[2017-09-19] MEDS: Cyanocobalamin (Vitamin B-12) 1,000 MCG TAB PO SCH (08:10)
[2017-09-19] MEDS: Timolol 0.5% Ophth Soln 5 ml Bottle EA EYE SCH ×2 (08:10→21:11)
[2017-09-19] MEDS: Folic Acid 1 MG TAB PO SCH (08:10)
[2017-09-19] MEDS: Brimonidine Tartrate 0.2% Ophth Soln 5 ml Bottle EA EYE SCH ×2 (08:11→21:11)
--- NOTE | 2017-09-19 11:50 | PDOC.PN ---
- Subjective Encounter Start Date: 09/19/17 Encounter Start Time: 07:00 Pt seen for followup re: ventricular tachycardia. Denies chest pain, shortness of breath, fever or chills. - Objective Resuscitation Status: Resuscitation Status FULL:Full Resuscitation MAR Reviewed: Yes Vital Signs & Weight: Vital Signs (12 hours) Temp Pulse Resp BP BP Pulse Ox 09/19/17 11:39 98.6 F 60 18 130/84 96 09/19/17 08:10 62 121/81 09/19/17 08:00 97.6 F 62 18 09/19/17 07:59 97.6 F 62 18 121/81 97 09/19/17 04:19 97.5 F L 60 16 169/92 H 95 09/19/17 00:04 97.8 F 60 12 143/90 H 97 Weight Weight 187 lb 4.8 oz I&O: 09/18/17 09/19/17 09/20/17 06:59 06:59 06:59 Intake Total 1187 Balance 1187 Result Diagrams: 09/17/17 04:47 09/17/17 04:47 EKG Reviewed by me: Yes (Tele: NSR) Phys Exam - Physical Examination Obese HEENT: moist MMs Neck: supple Respiratory: clear to auscultation bilateral Cardiovascular: RRR Gastrointestinal: soft Neurological: moves all 4 limbs Psychiatric: normal affect Dx/Plan (1) Ventricular tachycardia Code(s): I47.2 - VENTRICULAR TACHYCARDIA Status: Acute Comment: Continue metoprolol. Continue to monitor on telemetry. Pt to have repeat interrogation of pacemaker. (2) Alzheimer's dementia Code(s): G30.9 - ALZHEIMER'S DISEASE, UNSPECIFIED; F02.80 - DEMENTIA IN OTH DISEASES CLASSD ELSWHR W/O BEHAVRL DISTURB Status: Chronic Comment: Stable, continue home medications (3) CKD (chronic kidney disease) stage 3, GFR 30-59 ml/min Code(s): N18.3 - CHRONIC KIDNEY DISEASE, STAGE 3 (MODERATE) Status: Chronic Comment: Stable (4) Dyslipidemia Code(s): E78.5 - HYPERLIPIDEMIA, UNSPECIFIED Status: Chronic Comment: Stable (5) H/O: CVA (cerebrovascular accident) Code(s): Z86.73 - PRSNL HX OF TIA (TIA), AND CEREB INFRC W/O RESID DEFICITS Status: Chronic Comment: Stable (6) Parkinson disease Code(s): G20 - PARKINSON'S DISEASE Status: Chronic Comment: Stable - Plan * . Review of Systems - Review of Systems Respiratory: negative: Cough, Shortness of Breath, SOB with Excertion, Pleuritic Pain, Wheezing Cardiovascular: negative: chest pain, palpitations, orthopnea, paroxysmal nocturnal dyspnea, edema, light headedness - Medications/Allergies Allergies/Adverse Reactions: Allergies Allergy/AdvReac Type Severity Reaction Status Date / Time No Known Allergies Allergy Unverified 09/05/17 18:01 Medications: Current Medications Acetaminophen (Tylenol) 650 mg PO Q4H PRN PRN Reason: Headache/Fever or Pain Amiodarone HCl (Cordarone) 200 mg PO TID [facility] Last Admin: 09/19/17 08:09 Dose: 200 mg Aspirin (Aspirin Chewable) 81 mg PO DAILY [facility] Last Admin: 09/19/17 10:55 Dose: Not Given Atorvastatin Calcium (Lipitor) 40 mg PO [facility] Last Admin: 09/18/17 20:53 Dose: 40 mg Brimonidine Tartrate (Alphagan 0.2% Oph Sol) 1 drop EA EYE BID [facility] Last Admin: 09/19/17 08:11 Dose: 1 drop Carbidopa/Levodopa (Sinemet Cr 50/200) 1 tab PO TID [facility] Last Admin: 09/19/17 08:10 Dose: 1 tab Cyanocobalamin (Vitamin B-12) 1,000 mcg PO DAILY [facility] Last Admin: 09/19/17 08:10 Dose: 1,000 mcg Docusate Sodium (Colace) 100 mg PO BID [facility] Last Admin: 09/19/17 08:09 Dose: 100 mg Donepezil HCl (Aricept) 10 mg PO HS [facility] Last Admin: 09/18/17 20:53 Dose: 10 mg Famotidine (Pepcid) 20 mg PO 2100 [facility] Last Admin: 09/18/17 20:53 Dose: 20 mg Folic Acid (Folvite) 1 mg PO DAILY [facility] Last Admin: 09/19/17 08:10 Dose: 1 mg Guaifenesin/Dextromethorphan (Robitussin Dm) 15 ml PO Q4H PRN PRN Reason: Cough Sodium Chloride (Normal Saline 0.9%) 1,000 mls @ 75 mls/hr IV .[id number] [facility] Last Admin: 09/19/17 04:08 Dose: 1,000 mls Iron/Minerals/Multivitamins (Theragran M) 1 tab PO DAILY [facility] Last Admin: 09/19/17 08:09 Dose: 1 tab Metoprolol Tartrate (Lopressor) 50 mg PO BID [facility] Last Admin: 09/19/17 08:09 Dose: 50 mg Miscellaneous Information (Communication Order-Pharmacy) 0 each FS ASDIR [facility] Ondansetron HCl (Zofran) 4 mg IVP Q6H PRN PRN Reason: Nausea/Vomiting Sertraline HCl (Zoloft) 50 mg PO DAILY [facility] Last Admin: 09/19/17 08:09 Dose: 50 mg Sodium Chloride (Flush - Normal Saline) 10 ml IVF Q12HR [facility] Last Admin: 09/19/17 08:11 Dose: Not Given Sodium Chloride (Flush - Normal Saline) 10 ml IVF PRN PRN PRN Reason: Saline Flush Timolol Maleate (Timoptic 0.5% [facility]) 1 drop EA EYE BID [facility] Last Admin: 09/19/17 08:10 Dose: 1 drop
--- NOTE | 2017-09-19 13:55 | PDOC.CTH ---
<Renetta Fuller - Last Filed: 09/19/17 13:53> Cardiology Progress Note - Subjective EP progress note: Patient seen and evaluated. no family bedside. baseline dementia. No new cardiac concerns or complaints. No family bedside. - Objective Vital Signs Temp Pulse Resp BP BP Pulse Ox 09/19/17 11:39 98.6 F 60 18 130/84 96 09/19/17 08:10 62 121/81 09/19/17 08:00 97.6 F 62 18 09/19/17 07:59 97.6 F 62 18 121/81 97 09/19/17 04:19 97.5 F L 60 16 169/92 H 95 Weight 187 lb 4.8 oz 09/18/17 09/19/17 09/20/17 06:59 06:59 06:59 Intake Total 1187 Balance 1187 - Physical Examination General/Neuro: NAD Neck: carotid US brisk, no JVD present Lungs: CTA, unlabored respirations Heart: RRR Abdomen: NT/ND, soft - Telemetry Telemetry Rhythm: AP VS NSR - Labs Result Diagrams: 09/17/17 04:47 09/17/17 04:47 Troponin/CKMB CK-MB (CK-2) 0.7 ng/mL (0-6.6) 09/16/17 04:14 Troponin I 0.042 ng/mL (< 0.028) H 09/16/17 10:07 - Assessment/Plan 1. Near syncopal episode, cardiogenic 2. History of SSS s/p dual chamber PPM 3. Dual chamber Medtronic Adapta PPM- Lead parameters are stable. Sensing P>2.8 and R>16. AAIR<=>DDDR 60-130. One episode of high ventricular rate 1m46s in duration. Review of EGM make it difficult to determine if episode was SVT vs VT. Recommendation: Non invasive EP study to see if patient is inducible for VT. If SVT seen, would proceed to full EP study and radiofrequency ablation. If VT, then medical management. ICD implant is not recommended due to advanced dementia. All of this is pending consent by [facility] (sister- Ms. Riccardo Macario). Risks , benefits, and alternatives were discussed at length over the phone with Ms. Macario this afternoon. She is considering the information and will then decide. If agreeable, may proceed this afternoon, otherwise likely . <Nirmal Zamora - Last Filed: 09/19/17 16:05> Cardiology Progress Note - Objective Vital Signs Temp Pulse Resp BP BP Pulse Ox 09/19/17 15:33 98.6 F 61 16 143/87 H 97 09/19/17 11:39 98.6 F 60 18 130/84 96 09/19/17 08:10 62 121/81 09/19/17 08:00 97.6 F 62 18 09/19/17 07:59 97.6 F 62 18 121/81 97 09/19/17 04:19 97.5 F L 60 16 169/92 H 95 Weight 187 lb 4.8 oz 09/18/17 09/19/17 09/20/17 06:59 06:59 06:59 Intake Total 1187 Balance 1187 - Labs Result Diagrams: 09/17/17 04:47 09/17/17 04:47 Troponin/CKMB CK-MB (CK-2) 0.7 ng/mL (0-6.6) 09/16/17 04:14 Troponin I 0.042 ng/mL (< 0.028) H 09/16/17 10:07 Attending Addendum - Attending Addendum Date/Time: 09/19/17 1606 I personally evaluated the patient and discussed the management with Ms Fuller. I agree with the History, Examination, Assessment and Plan documented above with any addition or exceptions noted below.
--- NOTE | 2017-09-19 14:35 | EKG ---
Test Reason : Blood Pressure : / mmHG Vent. Rate : 062 BPM Atrial Rate : 062 BPM P-R Int : 000 ms QRS Dur : 102 ms QT Int : 430 ms P-R-T Axes : 000 -14 -05 degrees QTc Int : 436 ms Electronic atrial pacemaker First degree AV block When compared with ECG of 16-SEP-2017 03:45, (Unconfirmed) No significant change was found Confirmed by DR. Madi KEMP ([id number]) on 09/19/2017 2:35:40 PM Referred By: DARIEN Confirmed By:DR. Madi KEMP
[2017-09-19] MEDS: Atorvastatin Calcium 40 MG TAB PO SCH (21:10)
[2017-09-19] MEDS: Donepezil HCl 10 MG TAB PO SCH (21:10)
[2017-09-19] MEDS: Famotidine 20 MG TAB PO SCH (21:11)
[2017-09-20] MEDS: Sodium Chloride 0.9% 1,000 ML IV SCH ×2 (05:03→09:40)
[2017-09-20] MEDS: Brimonidine Tartrate 0.2% Ophth Soln 5 ml Bottle EA EYE SCH ×2 (09:35→20:14)
[2017-09-20] MEDS: Timolol 0.5% Ophth Soln 5 ml Bottle EA EYE SCH ×2 (09:36→20:14)
[2017-09-20] MEDS: Cyanocobalamin (Vitamin B-12) 1,000 MCG TAB PO SCH (09:39)
[2017-09-20] MEDS: Folic Acid 1 MG TAB PO SCH (09:39)
[2017-09-20] MEDS: Docusate 100 MG CAP PO SCH ×2 (09:39→20:15)
[2017-09-20] MEDS: Amiodarone 200 MG TAB PO SCH ×3 (09:39→20:15)
[2017-09-20] MEDS: Multivitamin W/ Minerals 1 TAB PO SCH (09:39)
[2017-09-20] MEDS: Carbidopa/Levodopa CR 50-200 mg Tablet PO SCH ×3 (09:39→20:13)
--- NOTE | 2017-09-20 11:20 | PDOC.PN ---
- Subjective Encounter Start Date: 09/20/17 Encounter Start Time: 07:20 Pt seen for followup re: ventricular tachycardia. Pt not answering questions, unable to complete ROS. - Objective Resuscitation Status: Resuscitation Status FULL:Full Resuscitation MAR Reviewed: Yes Vital Signs & Weight: Vital Signs (12 hours) Temp Pulse Resp BP BP Pulse Ox 09/20/17 09:36 60 138/99 H 09/20/17 07:36 97.3 F L 60 16 138/99 H 95 09/20/17 03:20 98.2 F 61 12 173/93 H 96 Weight Weight 183 lb I&O: 09/19/17 09/20/17 09/21/17 06:59 06:59 06:59 Intake Total 1187 2270 Balance 1187 2270 Result Diagrams: 09/17/17 04:47 09/17/17 04:47 EKG Reviewed by me: Yes (Tele: sinus bradycardia) Phys Exam - Physical Examination Constitutional: NAD HEENT: moist MMs Neck: supple Respiratory: clear to auscultation bilateral Cardiovascular: RRR Gastrointestinal: soft Neurological: moves all 4 limbs Deviation from normal: Unable to assess Dx/Plan (1) Ventricular tachycardia Code(s): I47.2 - VENTRICULAR TACHYCARDIA Status: Acute Comment: Continue metoprolol. Continue to monitor on telemetry. Pt to have noninvasive EP study. (2) Alzheimer's dementia Code(s): G30.9 - ALZHEIMER'S DISEASE, UNSPECIFIED; F02.80 - DEMENTIA IN OTH DISEASES CLASSD ELSWHR W/O BEHAVRL DISTURB Status: Chronic Comment: Stable, on home medications (3) CKD (chronic kidney disease) stage 3, GFR 30-59 ml/min Code(s): N18.3 - CHRONIC KIDNEY DISEASE, STAGE 3 (MODERATE) Status: Chronic Comment: Stable (4) Dyslipidemia Code(s): E78.5 - HYPERLIPIDEMIA, UNSPECIFIED Status: Chronic Comment: Stable (5) H/O: CVA (cerebrovascular accident) Code(s): Z86.73 - PRSNL HX OF TIA (TIA), AND CEREB INFRC W/O RESID DEFICITS Status: Chronic Comment: Stable (6) Parkinson disease Code(s): G20 - PARKINSON'S DISEASE Status: Chronic Comment: Stable - Plan * . Review of Systems - Medications/Allergies Allergies/Adverse Reactions: Allergies Allergy/AdvReac Type Severity Reaction Status Date / Time No Known Allergies Allergy Unverified 09/05/17 18:01 Medications: Current Medications Acetaminophen (Tylenol) 650 mg PO Q4H PRN PRN Reason: Headache/Fever or Pain Amiodarone HCl (Cordarone) 200 mg PO TID [facility] Last Admin: 09/20/17 09:39 Dose: Not Given Aspirin (Aspirin Chewable) 81 mg PO DAILY [facility] Last Admin: 09/20/17 09:39 Dose: 81 mg Atorvastatin Calcium (Lipitor) 40 mg PO HS [facility] Last Admin: 09/19/17 21:10 Dose: 40 mg Brimonidine Tartrate (Alphagan 0.2% Oph Soln) 1 drop EA EYE BID [facility] Last Admin: 09/20/17 09:35 Dose: 1 drop Carbidopa/Levodopa (Sinemet Cr 50/200) 1 tab PO TID [facility] Last Admin: 09/20/17 09:39 Dose: 1 tab Cyanocobalamin (Vitamin B-12) 1,000 mcg PO DAILY [facility] Last Admin: 09/20/17 09:39 Dose: 1,000 mcg Docusate Sodium (Colace) 100 mg PO BID [facility] Last Admin: 09/20/17 09:39 Dose: 100 mg Donepezil HCl (Aricept) 10 mg PO HS [facility] Last Admin: 09/19/17 21:10 Dose: 10 mg Famotidine (Pepcid) 20 mg PO 2100 [facility] Last Admin: 09/19/17 21:11 Dose: 20 mg Folic Acid (Folvite) 1 mg PO DAILY [facility] Last Admin: 09/20/17 09:39 Dose: 1 mg Guaifenesin/Dextromethorphan (Robitussin Dm) 15 ml PO Q4H PRN PRN Reason: Cough Sodium Chloride (Normal Saline 0.9%) 1,000 mls @ 75 mls/hr IV .[id number] [facility] Last Admin: 09/20/17 09:40 Dose: Not Given Iron/Minerals/Multivitamins (Theragran M) 1 tab PO DAILY [facility] Last Admin: 09/20/17 09:39 Dose: 1 tab Miscellaneous Information (Communication Order-Pharmacy) 0 each FS ASDIR [facility] Ondansetron HCl (Zofran) 4 mg IVP Q6H PRN PRN Reason: Nausea/Vomiting Sertraline HCl (Zoloft) 50 mg PO DAILY [facility] Last Admin: 09/20/17 09:39 Dose: 50 mg Sodium Chloride (Flush - Normal Saline) 10 ml IVF Q12HR [facility] Last Admin: 09/20/17 09:40 Dose: Not Given Sodium Chloride (Flush - Normal Saline) 10 ml IVF PRN PRN PRN Reason: Saline Flush Timolol Maleate (Timoptic 0.5% [facility]) 1 drop EA EYE BID [facility] Last Admin: 09/20/17 09:36 Dose: 1 drop
--- NOTE | 2017-09-20 12:16 | PRG ---
DATE OF SERVICE: 09/20/2017 SUBJECTIVE: Ms. Brenner seems to be doing well, unchanged. No further syncope spell noted. OBJECTIVE: VITAL SIGNS: Blood pressure is 138/99, heart rate 60, respiration 16, temperature 97.3 degrees Fahrenheit. GENERAL: Alert and oriented woman in no apparent distress. NECK: Supple. Jugular veins not distended. CHEST: Coarse without crackles. CARDIOVASCULAR: Heart sounds are regular rate and rhythm. No murmur or gallop. ABDOMEN: Benign. Bowel sounds positive. EXTREMITIES: Legs without edema, clubbing or cyanosis. DATABASE: The EKG telemetry strips reveals sinus rhythm, atrial paced. No new arrhythmias, occasional PVCs noted. ASSESSMENT AND PLAN: Ms. Brenner is a 72-year-old woman with a prior history of marked bradycardia requiring pacing therapy. She had though subsequent syncopal spell associated with an arrhtyhmia documented by the pacemaker's telemtry. It is still unclear from reviewing the electrograms, whether it is atrial or ventricular, hence only partial recordings were obtained. At this point, noninvasive EP study is suggested and possibly if necessary, radiofrequency ablation could be considered. Alternatively, amiodarone therapy could be administered. For now, hold amiodarone and transfer to EP procedure / possible ablation tomorrow. ASTERD
[2017-09-20] MEDS: Donepezil HCl 10 MG TAB PO SCH (20:13)
[2017-09-20] MEDS: Famotidine 20 MG TAB PO SCH (20:14)
[2017-09-20] MEDS: Atorvastatin Calcium 40 MG TAB PO SCH (20:18)
[2017-09-21] MEDS: Sodium Chloride 0.9% 1,000 ML IV SCH ×2 (01:00→14:12)
[2017-09-21] MEDS: Brimonidine Tartrate 0.2% Ophth Soln 5 ml Bottle EA EYE SCH ×2 (08:58→20:49)
[2017-09-21] MEDS: Folic Acid 1 MG TAB PO SCH (08:58)
[2017-09-21] MEDS: Cyanocobalamin (Vitamin B-12) 1,000 MCG TAB PO SCH (08:58)
[2017-09-21] MEDS: Docusate 100 MG CAP PO SCH ×3 (08:58→23:29)
[2017-09-21] MEDS: Multivitamin W/ Minerals 1 TAB PO SCH (08:58)
[2017-09-21] MEDS: Carbidopa/Levodopa CR 50-200 mg Tablet PO SCH ×4 (08:58→23:28)
[2017-09-21] MEDS: Timolol 0.5% Ophth Soln 5 ml Bottle EA EYE SCH ×2 (08:59→20:49)
--- NOTE | 2017-09-21 10:28 | PDOC.PN ---
- Subjective Encounter Start Date: 09/21/17 Encounter Start Time: 07:20 Pt seen for followup re: ventricular tachycardia. Awake and alert, answering questions, denies chest pain, shortness of breath, fevers or chills. - Objective Resuscitation Status: Resuscitation Status FULL:Full Resuscitation MAR Reviewed: Yes Vital Signs & Weight: Vital Signs (12 hours) Temp Pulse Resp BP BP Pulse Ox 09/21/17 08:59 60 139/90 09/21/17 07:40 98 F 60 18 139/90 99 09/21/17 04:00 97.7 F 60 16 163/115 H 100 09/20/17 23:47 97.4 F L 60 16 138/83 99 Weight Weight 187 lb 12.8 oz I&O: 09/20/17 09/21/17 09/22/17 06:59 06:59 06:59 Intake Total 2270 650 Balance 2270 650 Result Diagrams: 09/17/17 04:47 09/17/17 04:47 EKG Reviewed by me: Yes (Tele: NSR) Phys Exam - Physical Examination Obese HEENT: moist MMs Neck: supple Respiratory: clear to auscultation bilateral Cardiovascular: RRR Gastrointestinal: soft Musculoskeletal: edema present Neurological: moves all 4 limbs Psychiatric: normal affect Dx/Plan (1) Ventricular tachycardia Code(s): I47.2 - VENTRICULAR TACHYCARDIA Status: Acute Comment: Pt to have noninvasive EP study today. Continue metoprolol and monitor on telemetry. (2) Alzheimer's dementia Code(s): G30.9 - ALZHEIMER'S DISEASE, UNSPECIFIED; F02.80 - DEMENTIA IN OTH DISEASES CLASSD ELSWHR W/O BEHAVRL DISTURB Status: Chronic Comment: Stable, on home medications (3) CKD (chronic kidney disease) stage 3, GFR 30-59 ml/min Code(s): N18.3 - CHRONIC KIDNEY DISEASE, STAGE 3 (MODERATE) Status: Chronic Comment: Stable (4) Dyslipidemia Code(s): E78.5 - HYPERLIPIDEMIA, UNSPECIFIED Status: Chronic Comment: Stable (5) H/O: CVA (cerebrovascular accident) Code(s): Z86.73 - PRSNL HX OF TIA (TIA), AND CEREB INFRC W/O RESID DEFICITS Status: Chronic Comment: Stable (6) Parkinson disease Code(s): G20 - PARKINSON'S DISEASE Status: Chronic Comment: Stable - Plan * . Review of Systems - Medications/Allergies Allergies/Adverse Reactions: Allergies Allergy/AdvReac Type Severity Reaction Status Date / Time No Known Allergies Allergy Unverified 09/05/17 18:01 Medications: Current Medications Acetaminophen (Tylenol) 650 mg PO Q4H PRN PRN Reason: Headache/Fever or Pain Amiodarone HCl (Cordarone) 200 mg PO TID [facility] Last Admin: 09/20/17 20:15 Dose: 200 mg Aspirin (Aspirin Chewable) 81 mg PO DAILY [facility] Last Admin: 09/21/17 08:58 Dose: 81 mg Atorvastatin Calcium (Lipitor) 40 mg PO HS [facility] Last Admin: 09/20/17 20:18 Dose: 40 mg Brimonidine Tartrate (Alphagan 0.2% Ophth Soln) 1 drop EA EYE BID [facility] Last Admin: 09/21/17 08:58 Dose: 1 drop Carbidopa/Levodopa (Sinemet Cr 50/200) 1 tab PO TID [facility] Last Admin: 09/21/17 08:58 Dose: 1 tab Cyanocobalamin (Vitamin B-12) 1,000 mcg PO DAILY [facility] Last Admin: 09/21/17 08:58 Dose: 1,000 mcg Docusate Sodium (Colace) 100 mg PO BID [facility] Last Admin: 09/21/17 08:58 Dose: 100 mg Donepezil HCl (Aricept) 10 mg PO HS [facility] Last Admin: 09/20/17 20:13 Dose: 10 mg Famotidine (Pepcid) 20 mg PO 2100 [facility] Last Admin: 09/20/17 20:14 Dose: 20 mg Folic Acid (Folvite) 1 mg PO DAILY [facility] Last Admin: 09/21/17 08:58 Dose: 1 mg Guaifenesin/Dextromethorphan (Robitussin Dm) 15 ml PO Q4H PRN PRN Reason: Cough Sodium Chloride (Normal Saline 0.9%) 1,000 mls @ 75 mls/hr IV .[id number] [facility] Last Admin: 09/21/17 01:00 Dose: Not Given Iron/Minerals/Multivitamins (Theragran M) 1 tab PO DAILY [facility] Last Admin: 09/21/17 08:58 Dose: 1 tab Miscellaneous Information (Communication Order-Pharmacy) 0 each FS ASDIR [facility] Ondansetron HCl (Zofran) 4 mg IVP Q6H PRN PRN Reason: Nausea/Vomiting Sertraline HCl (Zoloft) 50 mg PO DAILY [facility] Last Admin: 09/21/17 08:58 Dose: 50 mg Sodium Chloride (Flush - Normal Saline) 10 ml IVF Q12HR [facility] Last Admin: 09/21/17 09:00 Dose: Not Given Sodium Chloride (Flush - Normal Saline) 10 ml IVF PRN PRN PRN Reason: Saline Flush Timolol Maleate (Timoptic 0.5% [facility]) 1 drop EA EYE BID [facility] Last Admin: 09/21/17 08:59 Dose: 1 drop
[2017-09-21] MEDS: Amiodarone 200 MG TAB PO SCH ×3 (10:34→23:28)
--- NOTE | 2017-09-21 16:50 | OP ---
DATE OF PROCEDURE: 09/21/2017 NONINVASIVE PROGRAMMING SIMULATION REFERRING PHYSICIAN: Dr. Man REASON FOR PROCEDURE: Ms. Brenner is a 72-year-old female with history of moderate dementia and also marked bradycardia requiring pacing a couple of weeks ago. She returned with a recurrent syncopal spell, though with rapid heartbeats in the 180s noted. She is here for a noninvasive program stimulation to evaluate the inducible arrhythmias. DESCRIPTION OF PROCEDURE: In the beginning of the case, Medtronic Advisa device was evaluated and found to be in adequate order. Through the EP testing algorithms, a standard noninvasive program stimulation was performed. The AV Wenckebach rate was 95 beats per minute, retrograde Wenckebach rate was 65 beats per minute. AV milan ERP was at 700/500. Ventricular ERP was 600/300. Full ventricular stimulation study was performed with [address] trains with up to 3 ventricular access stimuli, which were decremented to the refractory. No ventricular arrhythmia induced even at 400/260/200/180 milliseconds sequences. CONCLUSION: 1. No inducible atrial or ventricular arrhythmias noted. 2. Poor AV milan function demonstrated. 3. VA conduction was still present. PLAN: At this point, we will continue amiodarone. The patient is not inducible for atrial or ventricular arrhythmias. The original presenting high rate arrhythmia could still be ventricular versus atrial in origin. MTDD
[2017-09-21] MEDS ORDERED: hydrALAZINE 20 MG/ML VIAL SLOW IVP PRN (17:14)
[2017-09-21] MEDS: Famotidine 20 MG TAB PO SCH ×2 (20:49→23:29)
[2017-09-21] MEDS: Atorvastatin Calcium 40 MG TAB PO SCH ×2 (20:50→23:28)
[2017-09-21] MEDS: Donepezil HCl 10 MG TAB PO SCH ×2 (20:50→23:29)
[2017-09-22] MEDS: Sodium Chloride 0.9% 1,000 ML IV SCH (06:14)
[2017-09-22] MEDS: Brimonidine Tartrate 0.2% Ophth Soln 5 ml Bottle EA EYE SCH (09:23)
[2017-09-22] MEDS: Folic Acid 1 MG TAB PO SCH (09:23)
[2017-09-22] MEDS: Amiodarone 200 MG TAB PO SCH ×2 (09:23→15:04)
[2017-09-22] MEDS: Carbidopa/Levodopa CR 50-200 mg Tablet PO SCH ×2 (09:23→15:04)
[2017-09-22] MEDS: Cyanocobalamin (Vitamin B-12) 1,000 MCG TAB PO SCH (09:23)
[2017-09-22] MEDS: Docusate 100 MG CAP PO SCH (09:23)
[2017-09-22] MEDS: Multivitamin W/ Minerals 1 TAB PO SCH (09:23)
[2017-09-22] MEDS: Timolol 0.5% Ophth Soln 5 ml Bottle EA EYE SCH (09:24)
--- NOTE | 2017-09-22 11:44 | DIS ---
DATE OF ADMISSION: 09/16/2017 DATE OF DISCHARGE: 09/22/2017 PRIMARY CARE PROVIDER: Imani William M.D. DISCHARGE DIAGNOSIS: Tachyarrhythmia. CONSULTATIONS DURING THIS HOSPITALIZATION: Cardiology, Dr. Mart and Electrophysiology, Dr. Zamora. CONDITION OF PATIENT AT THE TIME OF DISCHARGE: Stable. I assessed Ms. Brenner on the day of dischar . She denies any chest pain or shortness of breath. Vital signs are stable. S1 and S2 are heard, regular. Lungs are clear to auscultation bilaterally. DISCHARGE MEDICATIONS: In addition to her home medications as dictated on history and physical note on 09/16/[address] Land, patient is being discharged home on amiodarone 200 mg 3 times a day for 2 weeks, then 200 mg 2 times a day for 2 weeks and then 200 mg daily. She should follow up with Dr. Man from Cardiology. HOSPITAL COURSE: Ms. Brenner is a pleasant 72-year-old lady who was admitted to [facility] on 09/16/2017 for tachyarrhythmia. AICD interrogation revealed suspected ventricular t achycardia. She was seen by Cardiology Service and was advised cardiac catheterization to rule out i schemic cause. She was subsequently seen by Electrophysiology Service and was advised a noninvasive program stimulation to evaluate for inducible arrhythmias. No inducible atrial or ventricular arrhyt hmias were noted on 09/21/2017. The patient was started on amiodarone during this hospitalization an d she is advised to continue amiodarone. Electrophysiology Service feels that the original presentin g high rate arrhythmia could still be ventricular versus atrial in origin. Many thanks for allowing me to participate in your patient's care. Please feel free to contact me wi th any questions or concerns. DISCHARGE DESTINATION: Home. TOTAL AMOUNT OF TIME SPENT COORDINATING THIS DISCHARGE: 38 minutes.
[2017-09-22 12:23] VITALS: BP 143/81; TEMP 98.6
--- NOTE | 2017-09-25 17:37 | EKG ---
Test Reason : Blood Pressure : / mmHG Vent. Rate : 060 BPM Atrial Rate : 060 BPM P-R Int : 428 ms QRS Dur : 102 ms QT Int : 444 ms P-R-T Axes : 040 -04 007 degrees QTc Int : 444 ms Sinus rhythm with 1st degree A-V block Pacer spikes noted, likely atrial lead Confirmed by DR. Madi KEMP ([id number]) on 09/25/2017 5:36:46 PM Referred By: DARIEN Confirmed By:DR. Madi KEMP
== END 2017-09-22 15:13 | disposition home or self-care (01) | DRG 310 ==
LOC: ERS 03:36 → 2SE 06:00
PROVIDERS: ADMIT Internal Medicine; ATTEND Internal Medicine
DX: I47.2 Ventricular tachycardia (principal); G20 Parkinson's disease; F02.80 Dementia in other diseases classified elsewhere, unspecified severity, without behavioral disturbance, psychotic disturbance, mood disturbance, and anxiety; E78.5 Hyperlipidemia, unspecified; R00.1 Bradycardia, unspecified; G30.9 Alzheimer's disease, unspecified; I12.9 Hypertensive chronic kidney disease with stage 1 through stage 4 chronic kidney disease, or unspecified chronic kidney disease; N18.3 Chronic kidney disease, stage 3 (moderate); Z95.0 Presence of cardiac pacemaker; Z86.73 Personal history of transient ischemic attack (TIA), and cerebral infarction without residual deficits
CPT/HCPCS: 36415; 36416; 51701; 71045; 80048; 80053; 81003; 82553; 83690; 83880; 84484; 85025; 93005; 93010; 94760; A4216; A4353; G8996-GN-CJ; G8997-GN-CJ; J0360; J1650

== ENCOUNTER 2018-02-08 08:38 | Outpatient (CLI) | payer MEDICARE | END 2018-02-08 08:39 | disposition home or self-care (01) | LOC: BICMAMMO 08:38 | PROVIDERS: ATTEND Internal Medicine Geriatric Medicine | DX: Z12.31 Encounter for screening mammogram for malignant neoplasm of breast (principal); R92.1 Mammographic calcification found on diagnostic imaging of breast | CPT/HCPCS: 77063; 77067; 77080 ==

== ENCOUNTER 2018-04-12 09:30 | Outpatient (CLI) | payer MEDICARE ==
--- NOTE | 2018-04-12 15:58 | NM ---
NUCLEAR MEDICINE BRAIN IMAGING: Date: 04/12/18 HISTORY: Tremors, cerebellar infarction, unspecified. Concern for Parkinson's disease. TECHNIQUE: A DaTscan with axial tomographic images of the brain was obtained 3 hours following the intravenous a dministration of 4.6 mCi Iodine-123 Ioflupane. The patient was pretreated with 130 mg of potassium io dide orally 1 hour prior to the injection. FINDINGS: There is loss of normal symmetric uptake in the striata bilaterally with greater decrease in uptake o n the left compared to the right. IMPRESSION: Parkinsonian syndrome. POS: [facility]
== END 2018-04-12 09:31 | disposition home or self-care (01) ==
LOC: NM 09:30
PROVIDERS: ATTEND Nurse Practitioner Acute Care
DX: I63.9 Cerebral infarction, unspecified (principal); G20 Parkinson's disease
CPT/HCPCS: 78607; A9584

== ENCOUNTER 2019-01-01 14:42 | Inpatient (IN) | payer MEDICARE ==
--- NOTE | 2019-01-01 16:24 | CT ---
CT Brain WO Con: 01/01/2019 4:03 PM CLINICAL HISTORY: History of fall. IMAGING TECHNIQUE: Multiple CT images were obtained of the brain without IV contrast. COMPARISON: September 05, 2017 FINDINGS: Infarct: There are remote infarcts involving the occipital lobes and left parietal lobe. Remote lacu emmanuel infarcts involving the left thalamus and right globus pallidus. There is moderate chronic small vessel white matter ischemic change. No acute infarct is evident. Hemorrhage: None.. Hydrocephalus: None.. Basal cisterns: Normal.. Cerebral parenchyma: Normal.. Midline shift: None.. Cerebellum: Normal. Brainstem: Normal. 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 No dis placed skull fracture is evident.. Visualized Paranasal sinuses: Clear.. Extracranial soft tissues:Normal. IMPRESSION: No acute intracranial abnormality.
--- NOTE | 2019-01-01 16:44 | RAD ---
Exam: XR Knee Rt 4 View STANDARD HISTORY: Trauma. Right thigh pain after a fall. COMPARISON: None FINDINGS: There is suggestion of a remote healed fracture involving the right proximal fibula. No acute fracture, dislocation, or other acute osseous abnormality is identified. Vascular calcifications are seen posterior to the knee. IMPRESSION: No acute osseous abnormality is identified.
--- NOTE | 2019-01-01 16:57 | CT ---
EXAM: CT Pelvis WO Con PROVIDED CLINICAL HISTORY: Right thigh pain after a fall. COMPARISON: None FINDINGS: There is a nondisplaced obliquely oriented fracture involving the medial right acetabular wall which extends into the superior medial acetabulum and into the right iliac bone. No additional fracture or dislocation is seen. Degenerative changes are seen in the lower lumbar spine and involving the sacroiliac joints. There is mild asymmetry in soft tissue density adjacent to the medial wall right acetabulum compared to the contralateral left side. This is likely related to small amount of adjacent hemorrhage due to the acetabular fracture. Minimal right hip joint effusion is seen. There is colonic diverticulosis. Vascular calcifications are seen. IMPRESSION: 1. Nondisplaced obliquely oriented fracture involving the medial wall right acetabulum with extension of the fracture into the supra-acetabular region. There is minimal amount of hemorrhage adjacent to the medial wall acetabulum with tiny amount of fluid in the right hip joint asymmetric compared to the contralateral left side. 2. Above findings discussed with Dr. Diaz in the emergency department on 01/01/2019 at 1651 hours.
[2019-01-01] MEDS ORDERED: Morphine 4 MG/ML VIAL ONE (18:04)
[2019-01-01] MEDS ORDERED: Ketorolac Tromethamine 30 MG/ML VIAL ONE (18:05)
[2019-01-01 18:27] LABS: #Lymphocytes 0.9 thou/uL (1.20-3.40); #Monocytes 0.5 thou/uL (0.11-0.59); #Neutrophils 7.1 thou/uL (1.40-6.50); %Basophils 0.2 % (0.0-1.0); %Eosinophils 0.2 % (0.0-10.0); %Lymphocytes 10.2 % (21.0-51.0); %Monocytes 5.9 % (0.0-10.0); %Neutrophils 83.5 % (42.0-75.0); Mean Corpuscular HGB CONC 32.7 g/dL (32.0-36.0); Mean Corpuscular Hemoglobin 29.9 pg (27.0-31.0); Mean Corpuscular Volume 91.4 fL (78.0-98.0); Mean Platelet Volume 10.7 fL (7.4-10.4); Platelet Count 129 thou/uL (130-400); RBC Distribution Width 12.9 % (11.5-14.5); Red Blood Cell (RBC) Count 4.36 mill/uL (4.20-5.40); White Blood Cell (WBC) Count 8.6 thou/uL (4.8-10.8)
[2019-01-01 18:50] LABS: ALT (SGPT) 9 U/L (8-55); AST (SGOT) 20 U/L (5-34); Albumin 4.4 g/dL (3.4-4.8); Alkaline Phosphatase 61 U/L (40-150); Anion Gap 16 mmol/L (10-20); BUN (Urea Nitrogen) 33 mg/dL (9.8-20.1); Bilirubin, Total 0.4 mg/dL (0.2-1.2); CK (CPK) 171 U/L (29-168); Calc. Creatinine Clearance 0 mL/min (70-130); Carbon Dioxide 23 mmol/L (23-31); Chloride 104 mmol/L (98-107); Estimated GFR-MDRD 23; Globulin 3.5 g/dL (2.4-3.5); Glucose 99 mg/dL (83-110); Lipase 75 U/L (8-78); Potassium 4.5 mmol/L (3.5-5.1); Protein, Total 7.9 g/dL (6.0-8.3); Sodium 138 mmol/L (136-145)
[2019-01-01] MEDS ORDERED: Dextrose 5% in Water 1,000 ML IV PRN (19:43)
[2019-01-01] MEDS ORDERED: hydrALAZINE 20 MG/ML VIAL SLOW IVP PRN (19:43)
[2019-01-01] MEDS ORDERED: HumaLOG 300 UNITS/3 ML VIAL SC PRN (19:43)
[2019-01-01] MEDS ORDERED: Dextrose 50% Abboject 50 ML SYRINGE SLOW IVP PRN (19:43)
[2019-01-01] MEDS ORDERED: traMADol HCl 50 MG TAB PO PRN (19:51)
[2019-01-01] MEDS ORDERED: Sodium Chloride 0.9% 1,000 ML IV SCH (20:00)
[2019-01-01] MEDS ORDERED: Sodium Chloride 0.9% 500 ML IV SCH (20:00)
[2019-01-01] MEDS ORDERED: Gabapentin 100 MG CAP PO SCH (21:00)
[2019-01-01] MEDS: Acetaminophen 500 MG TAB PO SCH (23:06)
[2019-01-01] MEDS: Donepezil HCl 10 MG TAB PO SCH (23:06)
[2019-01-01] MEDS: Amiodarone 200 MG TAB PO SCH (23:07)
[2019-01-01] MEDS: Senokot S 8.6-50 MG TAB PO SCH (23:07)
[2019-01-01] MEDS: Atorvastatin Calcium 40 MG TAB PO SCH (23:07)
[2019-01-01] MEDS: traMADol HCl 50 MG TAB PO SCH (23:07)
[2019-01-01] MEDS: Gabapentin 100 MG CAP PO SCH (23:07)
[2019-01-01 23:22] VITALS: BMI 30.6
[2019-01-01] MEDS ORDERED: Ibuprofen 600 MG TAB PO SCH (23:59)
--- NOTE | 2019-01-02 02:43 | HP ---
HISTORY OF PRESENT ILLNESS: Ms. Brenner is a 73-year-old female, comes into the emergency room for evaluation of an unwitnessed fall at home. The patient's sister reports that she and her heard some noise from the patient's room from another room, when they came in, they saw the patient was lying down in front of the bathroom door. She did not lose consciousness. She is well aware and alert and she was talking at that time. She reports of having right thigh pain after fall. From the patient's perspective, she did not recall why and how that she fell. Upon arrival in the emergency room, the patient's GCS 15. The patient had examination and workup per Dr. Diaz, ER doctor. Primarily, the patient was diagnosed with right acetabulum fracture. The patient was consulted with an orthopedic Dr Avery. Dr Avery decision was nonop for her acetabular fracture. However, patient had difficulty to get to her car due to pain. Dr. Diaz contacted rehabilitation facility for possible admission, but rehab answer was they could not take the patient at this time. Patient and her family wish for her to admit to trauma service for pain control and working toward her stability. REVIEW OF SYSTEMS: Noncontributory except per HPI. PAST MEDICAL HISTORY: The patient reports having a stroke with left-sided weakness 1 year ago. She is able to ambulate independently using cane or walker. The patient have dementia, hypertension, pacemaker placement 1 year ago and using amiodarone every day. ALLERGIES: NO KNOWN ALLERGIES. PAST SURGICAL HISTORY: Cataract surgery, pacemaker. SOCIAL HISTORY: The patient denies alcohol, drug use, or smoking history. CURRENT MEDICATIONS: 1. Amiodarone 200 mg daily. 2. Donepezil 10 mg daily. 3. Rosuvastatin 10 mg daily. 4. Aspirin 81 mg daily. 5. Amlodipine 2.5 mg daily. 6. Zoloft 50 mg daily. 7. Melatonin 3 mg daily. PHYSICAL EXAMINATION: GENERAL: The patient sits in a chair complaining of pain from the right leg, no acute respiratory distress. HEENT: Atraumatic. No bruising. No bleeding. No open wound. NECK: No tender to touch. Trachea midline. No bruising. CHEST: Chest rise equally bilaterally. No bruising. No deformity. LUNGS: Clear bilaterally. HEART: Regular rate and rhythm. ABDOMEN: Soft, nondistended. Bowel sounds active. EXTREMITIES: Right extremity, limited range of motion due to pain. NEUROVASCULAR: Intact x4. BACK: Normal alignment. No tender to touch. No step off. LABORATORY DATA: CBC; white count is 8.6, hemoglobin 13.0, sodium 138, potassium 4.5, creatinine 2.47, elevated. BUN 33, elevated. CK 171, elevated. RADIOLOGY: CT scan of brain show no acute intracranial abnormality. CT scan of pelvis without contrast show nondisplaced, oblique, oriented fracture in medial wall right acetabulum with extension of the fracture at the supraacetabular region. X-ray of the right knee, four views, standing show no acute abnormality identified. DIAGNOSES: 1. Status post unwitnessed fall. 2. Right acetabulum fracture. Conservative treatment. 3. History of cerebrovascular accident with left-sided deficits. 4. History of Parkinson's dementia. 5. Hypertension. 6. Hyperlipidemia, stable. 7. History of pacemaker. 8. Acute traumatic pain. PLAN: 1. Pain control using p.o. medication. 2. Start deep venous thrombosis and gastritis prophylaxis. 3. Acute kidney failure due to dehydration. We will hydrate with normal saline and recheck creatinine tomorrow. 4. Cardiology consult for pacemaker interrogation. 5. Rehab screening is ordered, prepare for patient to rehab placement after the patient's pain is well controlled, Job ID: [id number] MTDD
[2019-01-02 05:12] LABS: #Eosinphils 0.1 thou/uL (0.0-0.7); #Lymphocytes 1.3 thou/uL (1.20-3.40); #Monocytes 0.6 thou/uL (0.11-0.59); #Neutrophils 4.9 thou/uL (1.40-6.50); %Basophils 0.5 % (0.0-1.0); %Eosinophils 1.6 % (0.0-10.0); %Lymphocytes 19.1 % (21.0-51.0); %Monocytes 8.6 % (0.0-10.0); %Neutrophils 70.2 % (42.0-75.0); Hemoglobin 11.4 g/dL (12.0-16.0); Mean Corpuscular Hemoglobin 29.6 pg (27.0-31.0); Mean Corpuscular Volume 92.5 fL (78.0-98.0); Mean Platelet Volume 10.6 fL (7.4-10.4); Platelet Count 103 thou/uL (130-400); RBC Distribution Width 13.1 % (11.5-14.5); Red Blood Cell (RBC) Count 3.83 mill/uL (4.20-5.40)
[2019-01-02 05:19] LABS: Anion Gap 13 mmol/L (10-20); BUN (Urea Nitrogen) 39 mg/dL (9.8-20.1); Calc. Creatinine Clearance 26 mL/min (70-130); Calcium 8.8 mg/dL (7.8-10.44); Carbon Dioxide 21 mmol/L (23-31); Chloride 109 mmol/L (98-107); Estimated GFR-MDRD 23; Glucose 89 mg/dL (83-110); Potassium 3.8 mmol/L (3.5-5.1); Sodium 139 mmol/L (136-145)
[2019-01-02 05:20] LABS: CK (CPK) 115 U/L (29-168); Phosphorus 4.7 mg/dL (2.3-4.7)
[2019-01-02] MEDS: Acetaminophen 500 MG TAB PO SCH ×3 (05:35→21:39)
[2019-01-02] MEDS: traMADol HCl 50 MG TAB PO SCH ×2 (05:35→18:36)
[2019-01-02] MEDS ORDERED: Sodium Chloride 0.9% 500 ML IV SCH (06:45)
[2019-01-02] MEDS ORDERED: Aspirin Chewable 81 MG TAB PO SCH ×3 (09:00)
[2019-01-02] MEDS ORDERED: Prevnar 13-Val Conj/PF 0.5 ML SYRINGE IM ONE (09:00)
--- NOTE | 2019-01-02 09:17 | CON ---
DATE OF CONSULTATION: 01/02/2019 This is Pratibha Terrell PA-C dictating a report for Reno Avery MD. REQUESTING PHYSICIAN: Trauma Services. CONSULTING PHYSICIAN: Reno Avery MD REASON FOR CONSULTATION: Right acetabulum fracture. HISTORY OF PRESENT ILLNESS: This is a 73-year-old female, who presented to the emergency room for evaluation after an unwitnessed fall at home. The patient has underlying dementia. She lives with her sister, who reported that they heard some noise coming from the patient's room and when they walked in the room, the patient was lying down. No loss of consciousness. Further workup in the ER demonstrated a nondisplaced right acetabulum fracture on CT. Dr. Avery was called at this time for further evaluation. The patient was to be discharged to rehab from the emergency department, but then was admitted for dehydration and pacemaker interrogation. I am currently seeing her up on the surgical floor. Majority of history is obtained from records secondary to the patient's dementia. No family currently at bedside. The patient denies any complaints at this time. PAST MEDICAL HISTORY: Significant for previous stroke with left-sided weakness approximately 1 year ago, dementia, hypertension, and pacemaker placement 1 year ago. ALLERGIES: NO KNOWN DRUG ALLERGIES. PAST SURGICAL HISTORY: Cataract surgery and pacemaker. SOCIAL HISTORY: The patient denies any alcohol, drug use, or tobacco history. She lives at home with her sister and her . She is an independent ambulator, but does occasionally use a cane or walker. FAMILY HISTORY: Reviewed and noncontributory. REVIEW OF SYSTEMS: Unobtainable secondary to the patient's dementia. PHYSICAL EXAMINATION: VITAL SIGNS: Show temperature of 97.5, pulse of 60, respiratory rate of 16, O2 saturation is 98% on room air, and blood pressure is 96/62. GENERAL: The patient is sleeping in bed at this time. She does answer questions. She does wake up and talk to me. She is not oriented to person, place, or time at this present moment. No family is currently in the room. HEENT: Head is normocephalic and atraumatic. NECK: Supple. Trachea is midline. Breathing is nonlabored. EXTREMITIES: Bilateral lower extremities were evaluated. There is no evidence of shortening or external rotation on either side. The patient does move both feet and ankles. She is able to move toes on both feet. Distal neurovascular status intact bilaterally. I am able to passively move her right hip without any discomfort elicited. No tenderness to palpation along the greater trochanteric region or along the thigh. Skin is free of lesions and rashes. Remainder of extremity exam also unremarkable. RADIOGRAPHIC FINDINGS: Reviewed today including CT of the pelvis demonstrates a nondisplaced acetabulum fracture that extends into the superior portion of the acetabulum. These were reviewed with Dr. Avery. ASSESSMENT: Right nondisplaced acetabulum fracture in a 73-year-old female with dementia. PLAN: At this time, we will allow the patient to toe-touch weightbear. We would like to avoid full weightbearing as this may displace the fracture fragments. The patient does have dementia. We will have her work with physical therapy. She does not show any signs of discomfort at this time on my physical exam, likely to her underlying dementia. She may be discharged to rehab per Trauma when this is available. We would like to see her in our clinic for followup evaluation in 2 to 3 weeks. No surgical intervention is anticipated at this time. Job ID: [id number]
[2019-01-02] MEDS: Lactated Ringer's 1,000 ML IV SCH ×2 (09:35→18:40)
[2019-01-02] MEDS: Multivitamin W/ Minerals 1 TAB PO SCH (09:43)
[2019-01-02] MEDS: Senokot S 8.6-50 MG TAB PO SCH ×2 (09:43→19:59)
[2019-01-02] MEDS: Amiodarone 200 MG TAB PO SCH (09:44)
[2019-01-02] MEDS: Gabapentin 100 MG CAP PO SCH ×3 (09:44→19:59)
[2019-01-02] MEDS: Folic Acid 1 MG TAB PO SCH (09:44)
[2019-01-02] MEDS: Cyanocobalamin (Vitamin B-12) 1,000 MCG TAB PO SCH (09:44)
[2019-01-02] MEDS: Polyethylene Glycol 3350 17 GM Packet PO SCH (09:45)
[2019-01-02] MEDS ORDERED: Hydrocortisone Sod Succ/PF 100 mg/2 ml Vial IVP SCH (10:30)
[2019-01-02] MEDS: Brimonidine Tartrate 0.2% Ophth Soln 5 ml Bottle EA EYE SCH (10:35)
[2019-01-02] MEDS: Timolol 0.5% Ophth Soln 5 ml Bottle EA EYE SCH (10:35)
--- NOTE | 2019-01-02 10:42 | RAD ---
PORTABLE AP CHEST: Date: 01/02/19 HISTORY: Hip fracture. COMPARISON: 09/16/17. FINDINGS: Dual lead left subclavian cardiac pacemaking device remains in place. Cardiac silhouette is magnified by projection, but is at the upper limits of normal in size. Pulmonary vasculature is within normal limits. The thoracic aorta is ectatic. The lungs are clear. No pneumothorax or pleural effusion is se en. Multilevel degenerative changes are seen in the thoracic spine. No obvious fracture is seen on th is exam. IMPRESSION: No acute cardiopulmonary process. Chest is stable from prior exam of 2018. POS: [facility]
[2019-01-02] MEDS: Hydrocortisone Sod Succ/PF 100 mg/2 ml Vial IVP SCH ×2 (12:00→18:37)
--- NOTE | 2019-01-02 12:05 | PRG ---
DATE OF SERVICE: 01/02/2019 SUBJECTIVE: Ms. Brenner is a 73-year-old female who came to the emergency department yesterday after an unwitnessed fall at home. The patient's family heard her fall from another room and came in to check on her. She was found lying down in front of the bathroom. They reported no loss of consciousness. The patient was found to have a right acetabular fracture in the emergency department. Dr. Avery was consulted. His recommendations are nonoperative for the acetabular fracture at this time. The patient had extreme difficulty being discharged from the ER, getting into her car because of pain and in the ER, the decision was to admit the patient at this time to Trauma Service for pain control and working toward more stability in healing to be able to return home. The patient is confused at baseline. While in the room this morning, she is very somnolent, wanting to sleep, could not stay awake for conversation. Her blood pressure was low throughout the night. Lowest 97/61. This morning at recheck at 9:30, blood pressure 100/64. The patient is confused of where she is and to the situation of what happened. The patient has no complaints this morning. OBJECTIVE: VITALS SIGNS: Temperature 97.5, pulse 60, respiratory rate 16, O2 saturation 98% on room air, blood pressure 100/64. GENERAL: The patient is lying in bed, asleep upon entering the room. The patient is arousable to voice, but somnolent when not being stimulated. The patient is in no acute distress. HEART: Regular rate and rhythm. No murmurs, gallops, or rubs. LUNGS: Clear to auscultation bilaterally. No wheezing, rales, or rhonchi. ABDOMEN: Soft, nontender, nondistended. Bowel sounds present. EXTREMITIES: No lower extremity edema. Pulses 2+ dorsalis pedis bilaterally. ASSESSMENT AND PLAN: 1. Ground level fall. 2. Right acetabular fracture management, nonoperative. Continue aspirin 81 mg b.i.d. for DVT prophylaxis as nonoperative acetabular fracture. History of the CVA with left-sided deficits. History of Parkinson's dementia, history of hypertension, history of hyperlipidemia. History of pacemaker placement. 3. Hypotension: Hold amlodipine, as the patient is hypotensive today. Re- evaluate the patient's blood pressure Q4H. Added hydrocortisone to her regimen to increase her blood pressure. 4. Acute on chronic kidney disease. Creatinine acutely elevated to 2.51. There has been a steady increase in the past 16 months from 1.5 to 2.5. Pt has been seen and evaluated by Dr. Oliva, and care plan discussed with him. Job ID: [id number] MTDD
[2019-01-02] MEDS: Atorvastatin Calcium 40 MG TAB PO SCH (19:59)
[2019-01-02] MEDS: Aspirin Chewable 81 MG TAB PO SCH (19:59)
[2019-01-02] MEDS: Donepezil HCl 10 MG TAB PO SCH (19:59)
[2019-01-02] MEDS: Carbidopa/Levodopa 25-100 mg Tablet PO SCH ×4 (21:39→21:40)
[2019-01-02] MEDS ORDERED: Amlodipine 5 MG TAB PO PRN (23:09)
[2019-01-03 00:03] LABS: Bacteria/HPF 3+ HPF (None Seen); Bilirubin Negative (Negative); Blood, Urine Trace (Negative); Clarity Clear (Clear); Glucose, Urine (Dipstick) Normal (Negative); Leukocyte 500 Leu/uL (Negative); Nitrite Negative (Negative); Protein, Urine (Dipstick) Negative (Neg-Trace); Squamous Epithelial 0-3 HPF (0-3); Urobilinogen Normal mg/dL (Less than 2)
[2019-01-03] MEDS: Hydrocortisone Sod Succ/PF 100 mg/2 ml Vial IVP SCH ×2 (01:23→05:32)
[2019-01-03] MEDS: Lactated Ringer's 1,000 ML IV SCH ×2 (04:14→11:59)
[2019-01-03] MEDS ORDERED: Cipro 250 MG TAB PO SCH (06:00)
[2019-01-03] MEDS: Acetaminophen 500 MG TAB PO SCH ×2 (06:12→15:45)
[2019-01-03] MEDS: traMADol HCl 50 MG TAB PO SCH (06:13)
[2019-01-03 06:52] LABS: Anion Gap 11 mmol/L (10-20); BUN (Urea Nitrogen) 28 mg/dL (9.8-20.1); Calc. Creatinine Clearance 40 mL/min (70-130); Calcium 8.9 mg/dL (7.8-10.44); Carbon Dioxide 23 mmol/L (23-31); Chloride 108 mmol/L (98-107); Estimated GFR-MDRD 37; Glucose 77 mg/dL (83-110); Phosphorus 3.4 mg/dL (2.3-4.7); Potassium 4.1 mmol/L (3.5-5.1); Sodium 138 mmol/L (136-145)
[2019-01-03] MEDS ORDERED: Rosuvastatin 10 MG TAB PO SCH (09:00)
[2019-01-03] MEDS ORDERED: Amlodipine 5 MG TAB PO SCH (09:00)
--- NOTE | 2019-01-03 09:16 | PRG ---
DATE OF SERVICE: 01/02/2019 SUBJECTIVE: This is a 73-year-old female status post unwitnessed fall at home, She sustained acetabular fracture, conservative treatment per Orthopedic OBJECTIVE: GENERAL: Patient is lying down in bed comfortably. VITAL SIGNS: Temperature, heart rate, respiratory rate, O2 saturation, and blood pressure. LUNGS: Clear bilaterally. HEART: Regular rate and rhythm. ABDOMEN: Soft and nondistended. Normal bowel sounds. EXTREMITIES: . ASSESSMENT AND PLAN: status post ground level fall at home Acetabular fracture conservative treatment uncomplicated UTI Hx dementia, pacemaker PLAN: supportive care antibiotic for UTI continue PT/OT Plan for placement in SNF Job ID: [id number] MTDD
[2019-01-03] MEDS: Polyethylene Glycol 3350 17 GM Packet PO SCH (09:27)
[2019-01-03] MEDS: Carbidopa/Levodopa 25-100 mg Tablet PO SCH ×2 (09:27→15:45)
[2019-01-03] MEDS: Aspirin Chewable 81 MG TAB PO SCH (09:28)
[2019-01-03] MEDS: Multivitamin W/ Minerals 1 TAB PO SCH (09:28)
[2019-01-03] MEDS: Gabapentin 100 MG CAP PO SCH ×2 (09:28→15:46)
[2019-01-03] MEDS: Senokot S 8.6-50 MG TAB PO SCH (09:28)
[2019-01-03] MEDS: Folic Acid 1 MG TAB PO SCH (09:29)
[2019-01-03] MEDS: Cyanocobalamin (Vitamin B-12) 1,000 MCG TAB PO SCH (09:29)
[2019-01-03] MEDS: Timolol 0.5% Ophth Soln 5 ml Bottle EA EYE SCH (11:58)
[2019-01-03] MEDS: Brimonidine Tartrate 0.2% Ophth Soln 5 ml Bottle EA EYE SCH (11:59)
[2019-01-03 15:34] VITALS: BP 111/76; TEMP 97.5
--- NOTE | 2019-01-04 03:39 | DIS ---
DATE OF ADMISSION: 01/01/2019 DATE OF DISCHARGE: 01/03/2019 ADMISSION DIAGNOSES: 1. Status post unwitnessed fall. 2. Right acetabular fracture. 3. History of cerebrovascular accident with left-sided deficits. 4. History of Parkinson dementia. 5. Hypertension. 6. Hyperlipidemia. 7. History of pacemaker. 8. Acute traumatic pain secondary to #1 and #2. CONSULTATIONS: Orthopedics, Reno Avery MD PROCEDURES: None. HISTORY: The patient is a 73-year-old female who reportedly had an unwitnessed fall at home. She was brought to the emergency department, evaluated, examined, and noted to have the above injury. Per Orthopedics, her acetabular fracture will be treated nonoperatively with conservative management to include therapy. At the time of her ER visit, they attempted to place her in rehab, but were unable to. She was admitted to the facility until we could arrange placement. The patient would eventually be placed to [facility]. At the time of discharge, she was working with Physical and Occupational therapy. Her pain was controlled. She was tolerating diet. She will follow up with Dr. Avery in 3 to 4 weeks, sooner as needed. She will remain toe-touch weightbearing on her right side until re-evaluated by Orthopedics. The patient may follow up with the Trauma Clinic as needed. Job ID: [id number]
== END 2019-01-03 15:54 | DRG 536 ==
LOC: ERS 14:42 → SURG A 19:01
PROVIDERS: ADMIT Specialist; ATTEND Specialist
DX: S32.474A Nondisplaced fracture of medial wall of right acetabulum, initial encounter for closed fracture (principal); N17.9 Acute kidney failure, unspecified; N39.0 Urinary tract infection, site not specified; E86.0 Dehydration; W18.30XA Fall on same level, unspecified, initial encounter; G20 Parkinson's disease; F02.80 Dementia in other diseases classified elsewhere, unspecified severity, without behavioral disturbance, psychotic disturbance, mood disturbance, and anxiety; I12.9 Hypertensive chronic kidney disease with stage 1 through stage 4 chronic kidney disease, or unspecified chronic kidney disease; N18.9 Chronic kidney disease, unspecified; I95.9 Hypotension, unspecified; Z95.0 Presence of cardiac pacemaker; Z98.49 Cataract extraction status, unspecified eye; Z79.82 Long term (current) use of aspirin; Z79.899 Other long term (current) drug therapy; Z86.73 Personal history of transient ischemic attack (TIA), and cerebral infarction without residual deficits; Y92.009 Unspecified place in unspecified non-institutional (private) residence as the place of occurrence of the external cause
CPT/HCPCS: 36415; 70450; 71045; 72192; 80048; 80053; 81003; 81015; 82533; 82550; 83690; 83735; 84100; 85025; 90471; 90670; G0009; G0390; J1720; J1885; J2270

== ENCOUNTER 2019-11-14 11:48 | Outpatient (CLI) | payer MEDICARE ==
--- NOTE | 2019-11-14 12:52 | RAD ---
2 VIEWS LEFT HIP: Date: 11/14/2019 PROVIDED CLINICAL HISTORY: Pain without injury. FINDINGS: No evidence for fracture or other acute osseous abnormality. Left hip joint space appears preserved. Alignment appears anatomic. IMPRESSION: No evidence for an acute osseous abnormality or significant arthropathy. POS: [facility]
== END 2019-11-14 11:49 | disposition home or self-care (01) ==
LOC: BICRAD 11:48
PROVIDERS: ATTEND Family Medicine
DX: M25.552 Pain in left hip (principal)

== ENCOUNTER 2020-02-07 22:14 | Emergency (ER) | payer MEDICARE ==
[2020-02-07 22:49] LABS: #Basophils 0.1 thou/uL (0.0-0.2); #Eosinphils 0.1 thou/uL (0.0-0.7); #Lymphocytes 1.3 thou/uL (1.20-3.40); #Monocytes 0.4 thou/uL (0.11-0.59); #Neutrophils 6.5 thou/uL (1.40-6.50); %Basophils 0.7 % (0.0-1.0); %Eosinophils 0.8 % (0.0-10.0); %Lymphocytes 15.4 % (21.0-51.0); %Monocytes 4.8 % (0.0-10.0); %Neutrophils 78.2 % (42.0-75.0); Hemoglobin 13.1 g/dL (12.0-16.0); Mean Corpuscular HGB CONC 32.3 g/dL (32.0-36.0); Mean Corpuscular Hemoglobin 30.9 pg (27.0-31.0); Mean Corpuscular Volume 95.7 fL (78.0-98.0); Mean Platelet Volume 10.5 fL (7.4-10.4); Platelet Count 128 thou/uL (130-400); RBC Distribution Width 13.1 % (11.5-14.5); Red Blood Cell (RBC) Count 4.23 mill/uL (4.20-5.40); White Blood Cell (WBC) Count 8.3 thou/uL (4.8-10.8)
--- NOTE | 2020-02-07 22:53 | RAD ---
RADIOGRAPH CHEST 1 VIEW: DATE: 02/07/2020 HISTORY: 74-year-old female status post syncope. Concern for aspiration. FINDINGS: The thoracic aorta is tortuous and ectatic. There is no evidence of airspace density, pulmonary edema , or pneumothorax. The lateral costophrenic angles are not effaced. No cardiomegaly. Dual-lead left subclavian permanent pacemaker. IMPRESSION: 1) No acute pulmonary findings. 2) ectasia of thoracic aorta.
[2020-02-07 23:14] LABS: ALT (SGPT) 11 U/L (8-55); AST (SGOT) 18 U/L (5-34); Albumin 4.2 g/dL (3.4-4.8); Alkaline Phosphatase 49 U/L (40-110); Anion Gap 17 mmol/L (10-20); BUN (Urea Nitrogen) 24 mg/dL (9.8-20.1); Bilirubin, Total 0.4 mg/dL (0.2-1.2); Calc. Creatinine Clearance 0 mL/min (70-130); Calcium 9.6 mg/dL (7.8-10.44); Carbon Dioxide 22 mmol/L (23-31); Chloride 107 mmol/L (98-107); Estimated GFR-MDRD 27; Glucose 125 mg/dL (83-110); Lipase 73 U/L (8-78); Potassium 4.3 mmol/L (3.5-5.1); Protein, Total 7.2 g/dL (6.0-8.3); Sodium 142 mmol/L (136-145)
== END 2020-02-08 01:29 | disposition home or self-care (01) ==
LOC: ERS 22:14
DX: R55 Syncope and collapse (principal); R11.10 Vomiting, unspecified; G20 Parkinson's disease; G30.9 Alzheimer's disease, unspecified; E78.5 Hyperlipidemia, unspecified; E78.00 Pure hypercholesterolemia, unspecified; I10 Essential (primary) hypertension; I25.10 Atherosclerotic heart disease of native coronary artery without angina pectoris; Z79.82 Long term (current) use of aspirin; Z79.899 Other long term (current) drug therapy
CPT/HCPCS: 36415; 71045; 80053; 83690; 83735; 84484; 85025; 93005

== ENCOUNTER 2020-10-29 13:36 | Inpatient (IN) | payer MEDICARE ==
[2020-10-29 14:21] LABS: Hemoglobin 11.8 g/dL (12.0-16.0); Mean Corpuscular HGB CONC 31.3 g/dL (32.0-36.0); Mean Corpuscular Hemoglobin 29.9 pg (27.0-31.0); Mean Corpuscular Volume 95.6 fL (78.0-98.0); RBC Distribution Width 13.2 % (11.5-14.5); Red Blood Cell (RBC) Count 3.96 mill/uL (4.20-5.40); White Blood Cell (WBC) Count 11.3 thou/uL (4.8-10.8)
[2020-10-29 14:29] LABS: INR-International Normal Ratio 1.3; Prothrombin Time 15.7 sec (12.0-14.7)
[2020-10-29 14:30] LABS: PTT 28.9 sec (22.9-36.1)
[2020-10-29 14:40] LABS: ALT (SGPT) 28 U/L (8-55); AST (SGOT) 74 U/L (5-34); Albumin 3.7 g/dL (3.4-4.8); Alkaline Phosphatase 87 U/L (40-110); Anion Gap 15 mmol/L (10-20); BUN (Urea Nitrogen) 40 mg/dL (9.8-20.1); Bilirubin, Total 0.7 mg/dL (0.2-1.2); Calc. Creatinine Clearance 0 mL/min (70-130); Calcium 9.1 mg/dL (7.8-10.44); Carbon Dioxide 22 mmol/L (23-31); Chloride 105 mmol/L (98-107); Globulin 3.6 g/dL (2.4-3.5); Glucose 127 mg/dL (83-110); Potassium 3.8 mmol/L (3.5-5.1); Protein, Total 7.3 g/dL (5.8-8.1); Sodium 138 mmol/L (136-145)
[2020-10-29 14:43] LABS: Band 20 % (5-11); Hypochromia SLIGHT = 6-15 cells (100X) (0-5/hpf); Large Platelets SLIGHT; Lymphocytes 8 % (21-51); MDiff Complete? YES; Mean Platelet Volume 10.3 fL (7.4-10.4); Monocytes 1 % (0-10); Neutrophil 69 % (42-75); Ovalocytes SLIGHT = 2-5 cells (100X) (0-1/hpf); Platelet Count 68 thou/uL (130-400); Platelet Morphology Comment Appears Decreased; Polychromasia SLIGHT = 2-3 cells (100X) (0-2/hpf); Reactive Lymphocytes 1 % (0-10); Tear Drops SLIGHT = 2-5 cells (100X) (0-1/hpf)
[2020-10-29] MEDS ORDERED: Aspirin Chewable 81 MG TAB ONE (16:11)
[2020-10-29] MEDS ORDERED: hydrALAZINE 20 MG/ML VIAL SLOW IVP PRN (17:48)
[2020-10-29 20:50] VITALS: BMI 27.6
[2020-10-29] MEDS: Sodium Bicarbonate Tab 325 MG TAB PO SCH (21:54)
[2020-10-29 23:35] LABS: Bilirubin Negative (Negative); Blood, Urine 2+ (Negative); Clarity Turbid (Clear); Glucose, Urine (Dipstick) Normal (Negative); Ketone, Urine Negative (Negative); Leukocyte 500 Leu/uL (Negative); Nitrite Negative (Negative); Protein, Urine (Dipstick) 70 mg/dL (Neg-Trace); Specific Gravity, Urine 1.026 (1.002-1.036); Squamous Epithelial 0-3 HPF (0-3); WBC/HPF Greater than 50 HPF (0-3); pH, Urine 5.5 (5.0-9.0)
[2020-10-29 23:36] LABS: Bacteria/HPF 1+ HPF (None Seen)
[2020-10-29 23:47] LABS: Creatinine, Urine 239.66 mg/dL (47-110)
[2020-10-30 05:55] LABS: Cardiac Risk 3.5 (Less than 4.5); Magnesium 1.9 mg/dL (1.6-2.6)
[2020-10-30 06:00] LABS: Thyroid Stimulating Hormone 0.6138 uIU/mL (0.35-4.94)
[2020-10-30] MEDS ORDERED: Aspirin 81 mg Enteric Coated Tablet PO SCH (09:00)
[2020-10-30] MEDS: Rosuvastatin 10 MG TAB PO SCH (09:44)
[2020-10-30] MEDS: Sodium Bicarbonate Tab 325 MG TAB PO SCH ×2 (09:44→21:27)
[2020-10-30] MEDS: cefTRIAXone\\ROCEPHIN 2 GM in Sodium Chloride 0.9% 100 ML IVPB SCH (12:34)
[2020-10-30] MEDS ORDERED: Entacapone 200 mg Tablet PO SCH ×2 (15:00)
[2020-10-30] MEDS ORDERED: Carbidopa/Levodopa 25-100 mg Tablet PO SCH (15:00)
[2020-10-30] MEDS: Sodium Chloride 0.9% 1,000 ML IV SCH (16:23)
[2020-10-30] MEDS: Carbidopa/Levodopa 25-100 mg Tablet PO SCH (21:27)
[2020-10-30] MEDS: Donepezil HCl 10 MG TAB PO SCH (21:27)
[2020-10-30] MEDS: Timolol 0.5% Ophth Soln 5 ml Bottle EA EYE SCH (21:27)
[2020-10-30] MEDS: Brimonidine Tartrate 0.2% Ophth Soln 5 ml Bottle EA EYE SCH (21:29)
[2020-10-31 06:07] LABS: ALT (SGPT) 26 U/L (8-55); AST (SGOT) 80 U/L (5-34); Albumin 3.1 g/dL (3.4-4.8); Alkaline Phosphatase 141 U/L (40-110); Anion Gap 10 mmol/L (10-20); BUN (Urea Nitrogen) 30 mg/dL (9.8-20.1); Bilirubin, Total 0.6 mg/dL (0.2-1.2); Calc. Creatinine Clearance 33 mL/min (70-130); Calcium 8.6 mg/dL (7.8-10.44); Carbon Dioxide 26 mmol/L (23-31); Chloride 107 mmol/L (98-107); Glucose 96 mg/dL (83-110); Potassium 3.4 mmol/L (3.5-5.1); Protein, Total 6.1 g/dL (5.8-8.1); Sodium 140 mmol/L (136-145)
[2020-10-31 06:36] LABS: #Eosinphils 0.1 thou/uL (0.0-0.7); #Lymphocytes 0.6 thou/uL (1.20-3.40); #Monocytes 0.6 thou/uL (0.11-0.59); #Neutrophils 6.8 thou/uL (1.40-6.50); %Basophils 0.2 % (0.0-1.0); %Eosinophils 1.1 % (0.0-10.0); %Lymphocytes 7.9 % (21.0-51.0); %Monocytes 7.7 % (0.0-10.0); %Neutrophils 83.2 % (42.0-75.0); Hemoglobin 10.6 g/dL (12.0-16.0); Mean Corpuscular HGB CONC 32.8 g/dL (32.0-36.0); Mean Corpuscular Hemoglobin 31.3 pg (27.0-31.0); Mean Corpuscular Volume 95.5 fL (78.0-98.0); Mean Platelet Volume 12.8 fL (7.4-10.4); Platelet Count 68 thou/uL (130-400); RBC Distribution Width 13.3 % (11.5-14.5); Red Blood Cell (RBC) Count 3.39 mill/uL (4.20-5.40); White Blood Cell (WBC) Count 8.2 thou/uL (4.8-10.8)
[2020-10-31 06:37] LABS: Platelet Morphology Comment Appears Decreased
[2020-10-31] MEDS: Aspirin Chewable 81 MG TAB PO SCH (08:42)
[2020-10-31] MEDS: Brimonidine Tartrate 0.2% Ophth Soln 5 ml Bottle EA EYE SCH ×2 (08:42→21:31)
[2020-10-31] MEDS: Amiodarone 200 MG TAB PO SCH (08:42)
[2020-10-31] MEDS: Carbidopa/Levodopa 25-100 mg Tablet PO SCH ×2 (08:42→21:32)
[2020-10-31] MEDS: Timolol 0.5% Ophth Soln 5 ml Bottle EA EYE SCH ×2 (08:43→21:31)
[2020-10-31] MEDS: Folic Acid 1 MG TAB PO SCH (08:43)
[2020-10-31] MEDS: Sodium Bicarbonate Tab 325 MG TAB PO SCH ×2 (08:43→21:32)
[2020-10-31] MEDS: Rosuvastatin 10 MG TAB PO SCH (08:43)
[2020-10-31] MEDS: Sodium Chloride 0.9% 1,000 ML IV SCH (08:46)
[2020-10-31] MEDS ORDERED: Potassium Chloride 20 MEQ TAB PO SCH (09:00)
[2020-10-31] MEDS: cefTRIAXone\\ROCEPHIN 2 GM in Sodium Chloride 0.9% 100 ML IVPB SCH (10:47)
[2020-10-31] MEDS: Donepezil HCl 10 MG TAB PO SCH (21:32)
[2020-11-01] MEDS: Sodium Chloride 0.9% 1,000 ML IV SCH ×2 (02:38→09:04)
[2020-11-01 04:58] LABS: Mean Corpuscular HGB CONC 32.8 g/dL (32.0-36.0); Mean Corpuscular Hemoglobin 31.3 pg (27.0-31.0); Mean Corpuscular Volume 95.3 fL (78.0-98.0); Mean Platelet Volume 12.9 fL (7.4-10.4); Platelet Count 67 thou/uL (130-400); RBC Distribution Width 13.3 % (11.5-14.5); Red Blood Cell (RBC) Count 3.53 mill/uL (4.20-5.40)
[2020-11-01 05:02] LABS: Anion Gap 15 mmol/L (10-20); BUN (Urea Nitrogen) 26 mg/dL (9.8-20.1); Calc. Creatinine Clearance 39 mL/min (70-130); Calcium 8.8 mg/dL (7.8-10.44); Carbon Dioxide 20 mmol/L (23-31); Chloride 109 mmol/L (98-107); Glucose 79 mg/dL (83-110); Potassium 3.9 mmol/L (3.5-5.1); Sodium 140 mmol/L (136-145)
[2020-11-01 05:24] LABS: #Eosinphils 0.1 thou/uL (0.0-0.7); #Lymphocytes 0.9 thou/uL (1.20-3.40); #Monocytes 0.7 thou/uL (0.11-0.59); #Neutrophils 5.3 thou/uL (1.40-6.50); %Basophils 0.4 % (0.0-1.0); %Lymphocytes 12.1 % (21.0-51.0); %Monocytes 9.9 % (0.0-10.0); %Neutrophils 75.6 % (42.0-75.0); Large Platelets SLIGHT; MDiff Complete? YES; Platelet Morphology Comment Appears Decreased; Schistocytes SLIGHT = 2-5 cells (100X) (0-1/hpf)
[2020-11-01] MEDS: Rosuvastatin 10 MG TAB PO SCH (08:04)
[2020-11-01] MEDS: Folic Acid 1 MG TAB PO SCH (08:04)
[2020-11-01] MEDS: Sodium Bicarbonate Tab 325 MG TAB PO SCH ×2 (08:04→20:41)
[2020-11-01] MEDS: Carbidopa/Levodopa 25-100 mg Tablet PO SCH ×2 (08:04→20:41)
[2020-11-01] MEDS: Amiodarone 200 MG TAB PO SCH (08:04)
[2020-11-01] MEDS: Aspirin Chewable 81 MG TAB PO SCH (08:04)
[2020-11-01] MEDS: Brimonidine Tartrate 0.2% Ophth Soln 5 ml Bottle EA EYE SCH ×2 (08:05→20:40)
[2020-11-01] MEDS: Timolol 0.5% Ophth Soln 5 ml Bottle EA EYE SCH ×2 (08:06→20:40)
[2020-11-01] MEDS: Amlodipine 5 MG TAB PO SCH (09:17)
[2020-11-01] MEDS: Cephalexin 250 MG CAP PO SCH ×2 (09:17→17:32)
[2020-11-01] MEDS: Donepezil HCl 10 MG TAB PO SCH (20:41)
[2020-11-02] MEDS: Cephalexin 250 MG CAP PO SCH ×4 (00:46→22:14)
[2020-11-02 05:37] LABS: Hemoglobin 11.7 g/dL (12.0-16.0); Mean Corpuscular HGB CONC 32.6 g/dL (32.0-36.0); Mean Corpuscular Hemoglobin 30.9 pg (27.0-31.0); Mean Platelet Volume 11.6 fL (7.4-10.4); Platelet Count 98 thou/uL (130-400); RBC Distribution Width 13.1 % (11.5-14.5); Red Blood Cell (RBC) Count 3.77 mill/uL (4.20-5.40); White Blood Cell (WBC) Count 7.2 thou/uL (4.8-10.8)
[2020-11-02 05:50] LABS: Anion Gap 14 mmol/L (10-20); BUN (Urea Nitrogen) 20 mg/dL (9.8-20.1); Calc. Creatinine Clearance 41 mL/min (70-130); Calcium 9.2 mg/dL (7.8-10.44); Carbon Dioxide 23 mmol/L (23-31); Chloride 106 mmol/L (98-107); Glucose 95 mg/dL (83-110); Potassium 3.8 mmol/L (3.5-5.1); Sodium 139 mmol/L (136-145)
[2020-11-02 06:16] LABS: Band 4 % (5-11); Lymphocytes 9 % (21-51); MDiff Complete? YES; Monocytes 12 % (0-10); Neutrophil 72 % (42-75); Platelet Morphology Comment Appears Decreased; Reactive Lymphocytes 3 % (0-10)
[2020-11-02] MEDS: Brimonidine Tartrate 0.2% Ophth Soln 5 ml Bottle EA EYE SCH ×2 (08:09→22:08)
[2020-11-02] MEDS: Sodium Bicarbonate Tab 325 MG TAB PO SCH ×2 (08:10→22:15)
[2020-11-02] MEDS: Aspirin Chewable 81 MG TAB PO SCH (08:11)
[2020-11-02] MEDS: Amlodipine 5 MG TAB PO SCH (08:11)
[2020-11-02] MEDS: Amiodarone 200 MG TAB PO SCH (08:11)
[2020-11-02] MEDS: Carbidopa/Levodopa 25-100 mg Tablet PO SCH ×2 (08:11→22:15)
[2020-11-02] MEDS: Folic Acid 1 MG TAB PO SCH (08:11)
[2020-11-02] MEDS: Rosuvastatin 10 MG TAB PO SCH (08:11)
[2020-11-02] MEDS: Timolol 0.5% Ophth Soln 5 ml Bottle EA EYE SCH ×2 (08:17→22:08)
[2020-11-02] MEDS: Donepezil HCl 10 MG TAB PO SCH (22:15)
[2020-11-03] MEDS: Rosuvastatin 10 MG TAB PO SCH (08:10)
[2020-11-03] MEDS: Amlodipine 5 MG TAB PO SCH (08:10)
[2020-11-03] MEDS: Folic Acid 1 MG TAB PO SCH (08:10)
[2020-11-03] MEDS: Aspirin Chewable 81 MG TAB PO SCH (08:10)
[2020-11-03] MEDS: Sodium Bicarbonate Tab 325 MG TAB PO SCH ×2 (08:10→21:43)
[2020-11-03] MEDS: Amiodarone 200 MG TAB PO SCH (08:10)
[2020-11-03] MEDS: Carbidopa/Levodopa 25-100 mg Tablet PO SCH ×2 (08:10→21:44)
[2020-11-03] MEDS: Timolol 0.5% Ophth Soln 5 ml Bottle EA EYE SCH ×2 (08:11→21:44)
[2020-11-03] MEDS: Brimonidine Tartrate 0.2% Ophth Soln 5 ml Bottle EA EYE SCH ×2 (08:11→21:44)
[2020-11-03] MEDS: Cephalexin 250 MG CAP PO SCH ×2 (08:14→17:22)
[2020-11-03] MEDS ORDERED: Sodium Chloride 0.9% 500 ML IV SCH (10:15)
[2020-11-03] MEDS: Donepezil HCl 10 MG TAB PO SCH (21:44)
[2020-11-04] MEDS: Cephalexin 250 MG CAP PO SCH ×3 (00:52→16:28)
[2020-11-04] MEDS: Timolol 0.5% Ophth Soln 5 ml Bottle EA EYE SCH (08:29)
[2020-11-04] MEDS: Brimonidine Tartrate 0.2% Ophth Soln 5 ml Bottle EA EYE SCH (08:29)
[2020-11-04] MEDS: Carbidopa/Levodopa 25-100 mg Tablet PO SCH (08:30)
[2020-11-04] MEDS: Amlodipine 5 MG TAB PO SCH (08:30)
[2020-11-04] MEDS: Folic Acid 1 MG TAB PO SCH (08:30)
[2020-11-04] MEDS: Rosuvastatin 10 MG TAB PO SCH (08:30)
[2020-11-04] MEDS: Sodium Bicarbonate Tab 325 MG TAB PO SCH (08:30)
[2020-11-04] MEDS: Aspirin Chewable 81 MG TAB PO SCH (08:30)
[2020-11-04] MEDS: Amiodarone 200 MG TAB PO SCH (08:30)
[2020-11-04 16:00] VITALS: BP 137/82; TEMP 98.7
== END 2020-11-04 17:35 | DRG 689 ==
LOC: ERS 13:36 → 2SE 16:23 → OBSVTOIN 10-30 14:14
PROVIDERS: ADMIT Internal Medicine; ATTEND Internal Medicine
DX: N30.00 Acute cystitis without hematuria (principal); G93.41 Metabolic encephalopathy; N17.9 Acute kidney failure, unspecified; I69.354 Hemiplegia and hemiparesis following cerebral infarction affecting left non-dominant side; G45.9 Transient cerebral ischemic attack, unspecified; R53.1 Weakness; G30.9 Alzheimer's disease, unspecified; F02.80 Dementia in other diseases classified elsewhere, unspecified severity, without behavioral disturbance, psychotic disturbance, mood disturbance, and anxiety; I12.9 Hypertensive chronic kidney disease with stage 1 through stage 4 chronic kidney disease, or unspecified chronic kidney disease; G20 Parkinson's disease; N18.30 Chronic kidney disease, stage 3 unspecified; H54.3 Unqualified visual loss, both eyes; E78.5 Hyperlipidemia, unspecified; E87.6 Hypokalemia; I25.10 Atherosclerotic heart disease of native coronary artery without angina pectoris; F41.9 Anxiety disorder, unspecified; R00.1 Bradycardia, unspecified; F32.9 Major depressive disorder, single episode, unspecified; Z95.0 Presence of cardiac pacemaker; Z79.82 Long term (current) use of aspirin; Z79.899 Other long term (current) drug therapy; Z98.42 Cataract extraction status, left eye; Z98.41 Cataract extraction status, right eye
CPT/HCPCS: 36415; 36416; 70450; 71045; 76770; 80048; 80053; 80061; 81001; 82570; 82607; 82746; 83735; 84300; 84443; 84484; 85025; 85610; 85730; 87086; 93005; 93306; 93880; 95712; 95819; 95957; 96374; G0378; J0696; J3490